=== PATIENT | female | born 1935 | race Caucasian/White ===

== ENCOUNTER → 2017-02-23 | Outpatient (REF) | payer MEDICARE, MEDICAID ==
[~2017-02-23] MED LIST: AMLO10TA OR; ATEN50TA2 OR; CEFT250T OR; COLA100C2 OR; DIOV80TA PO; GLUC1000 OR; KEPPRA PO; NORV5TAB OR; PRIL20CA OR; VITAMIN D50000 UNT PO
[2017-02-23 11:15] LABS: FREE T4 0.98 NG/DL (0.76-1.46)
== END ==
PROVIDERS: ATTEND Internal Medicine
DX: E05.90 Thyrotoxicosis, unspecified without thyrotoxic crisis or storm (principal); G40.909 Epilepsy, unspecified, not intractable, without status epilepticus

== ENCOUNTER → 2017-03-09 | Outpatient (REF) | payer MEDICARE, MEDICAID ==
[2017-03-09 14:21] LABS: FREE T4 0.92 NG/DL (0.76-1.46)
== END ==
PROVIDERS: ATTEND Internal Medicine
DX: E05.90 Thyrotoxicosis, unspecified without thyrotoxic crisis or storm (principal); G40.909 Epilepsy, unspecified, not intractable, without status epilepticus

== ENCOUNTER → 2017-08-03 | Outpatient (CLI) | payer MEDICARE, MEDICAID | LOC: M SMT 11:44 | DX: Z53.9 Procedure and treatment not carried out, unspecified reason (principal) ==

== ENCOUNTER → 2017-08-05 | Outpatient (CLI) | payer MEDICARE, MEDICAID | LOC: M SMT 13:08 | DX: M25.774 Osteophyte, right foot (principal) | CPT/HCPCS: 73630 ==

== ENCOUNTER → 2018-11-29 | Outpatient (REF) | payer MEDICARE, MEDICAID ==
[2018-11-29 09:22] LABS: BASO # 0.1 10^3/uL (0.0-0.2); BASO % 0.9 % (0.0-1.0); EOS # 0.2 10^3/uL (0.0-0.50); EOS % 3.4 % (0.0-3.0); HEMATOCRIT 38.2 % (36.0-47.0); HEMOGLOBIN 12.2 g/dl (12.0-15.5); LYMPH # 1.9 10^3/uL (1.5-4.5); LYMPH % 32.9 % (24.0-44.0); MEAN CORPUSCULAR HEMOGLOBIN 29.5 pg (27.0-33.0); MEAN CORPUSCULAR HGB CONC 31.9 g/dl (32.0-36.5); MEAN CORPUSCULAR VOLUME 92.5 fl (80.0-96.0); MONO # 0.7 10^3/uL (0.0-0.8); MONO % 11.8 % (0.0-5.0); NEUTROPHILS # 2.9 10^3/uL (1.8-7.7); NEUTROPHILS % 50.6 % (36.0-66.0); PLATELET COUNT, AUTOMATED 321 10^3/uL (150-450); RED BLOOD COUNT 4.13 10^6/uL (4.00-5.40); WHITE BLOOD COUNT 5.7 10^3/uL (4.0-10.0)
[2018-11-29 10:49] LABS: ALBUMIN 3.3 GM/DL (3.2-5.2); ALT/SGPT 141 U/L (12-78); BILIRUBIN,TOTAL 0.5 MG/DL (0.2-1.0); BLOOD UREA NITROGEN 15 MG/DL (7-18); CALCIUM LEVEL 8.7 MG/DL (8.8-10.2); CARBON DIOXIDE LEVEL 27 MEQ/L (21-32); CHLORIDE LEVEL 104 MEQ/L (98-107); CHOLESTEROL LEVEL 195 MG/DL (<200); CHOLESTEROL RISK RATIO 3.145 (<5); GLOMERULAR FILTRATION RATE > 60.0 (>32); GLUCOSE, FASTING 124 MG/DL (70-100); HDL CHOLESTEROL 62 MG/DL (>40); LDL CHOLESTEROL 96 MG/DL (<100); NON-HDL-C 133 MG/DL; POTASSIUM SERUM 4.5 MEQ/L (3.5-5.1); SODIUM LEVEL 139 MEQ/L (136-145); TOTAL PROTEIN 7.4 GM/DL (6.4-8.2); TRIGLYCERIDES LEVEL 186 MG/DL (<150)
== END ==
PROVIDERS: ATTEND Internal Medicine
DX: I10 Essential (primary) hypertension (principal); E78.5 Hyperlipidemia, unspecified; G40.909 Epilepsy, unspecified, not intractable, without status epilepticus; R74.0 Nonspecific elevation of levels of transaminase and lactic acid dehydrogenase [LDH]

== ENCOUNTER → 2019-03-15 | Outpatient (REF) | payer MEDICARE, MEDICAID ==
[2019-03-15 10:02] LABS: ALBUMIN 3.5 GM/DL (3.2-5.2); BILIRUBIN,TOTAL 0.4 MG/DL (0.2-1.0); CALCIUM LEVEL 9.3 MG/DL (8.8-10.2); CHOLESTEROL RISK RATIO 2.65 (<5); CREATININE FOR GFR 0.95 MG/DL (0.55-1.30); GLOMERULAR FILTRATION RATE 59.4 (>32); POTASSIUM SERUM 4.6 MEQ/L (3.5-5.1); TOTAL PROTEIN 7.5 GM/DL (6.4-8.2)
[2019-03-15 10:26] LABS: TOTAL 25(OH) VITAMIN D 82.7 NG/ML (30.0-100.0)
== END ==
PROVIDERS: ATTEND Internal Medicine
DX: E55.9 Vitamin D deficiency, unspecified (principal); G40.909 Epilepsy, unspecified, not intractable, without status epilepticus; I10 Essential (primary) hypertension; R73.9 Hyperglycemia, unspecified; Z79.899 Other long term (current) drug therapy

== ENCOUNTER → 2019-03-19 | Outpatient (REF) | payer MEDICARE, MEDICAID ==
[2019-03-19 21:27] LABS: HEMATOCRIT 40.5 % (36.0-47.0); HEMOGLOBIN 12.8 g/dl (12.0-15.5); MEAN CORPUSCULAR HEMOGLOBIN 29.6 pg (27.0-33.0); MEAN CORPUSCULAR HGB CONC 31.6 g/dl (32.0-36.5); MEAN CORPUSCULAR VOLUME 93.8 fl (80.0-96.0); PLATELET COUNT, AUTOMATED 397 10^3/uL (150-450); RED BLOOD COUNT 4.32 10^6/uL (4.00-5.40); WHITE BLOOD COUNT 8.1 10^3/uL (4.0-10.0)
[2019-03-19 21:55] LABS: BILIRUBIN,TOTAL 0.3 MG/DL (0.2-1.0); CALCIUM LEVEL 9.4 MG/DL (8.8-10.2); CREATININE FOR GFR 1.1 MG/DL (0.55-1.30); GLOMERULAR FILTRATION RATE 50.1 (>32); POTASSIUM SERUM 4.7 MEQ/L (3.5-5.1)
[2019-03-19 21:56] LABS: ALBUMIN 3.7 GM/DL (3.2-5.2); TOTAL PROTEIN 8.1 GM/DL (6.4-8.2)
== END ==
LOC: M LAB REF 08:28
PROVIDERS: ATTEND Physician Assistant
DX: R30.0 Dysuria (principal); R42 Dizziness and giddiness; R41.0 Disorientation, unspecified

== ENCOUNTER → 2019-03-22 | Outpatient (CLI) | payer MEDICARE, MEDICAID | LOC: M LAB 10:58 | PROVIDERS: ATTEND Internal Medicine | DX: G40.909 Epilepsy, unspecified, not intractable, without status epilepticus (principal) ==

== ENCOUNTER → 2019-04-17 | Outpatient (REF) | payer MEDICARE, MEDICAID ==
[2019-04-18 15:56] LABS: APPEARANCE, URINE CLEAR (CLEAR); COLOR, URINE YELLOW (YELLOW); GLUCOSE, URINE (UA) AUTO NEGATIVE (NEGATIVE); KETONE, URINE AUTO NEGATIVE (NEGATIVE); PROTEIN, URINE AUTO NEGATIVE (NEGATIVE); SPECIFIC GRAVITY URINE AUTO 1.008 (1.002-1.035)
[2019-04-18 15:58] LABS: BILIRUBIN, URINE AUTO NEGATIVE (NEGATIVE); BLOOD, URINE BLOOD NEGATIVE (NEGATIVE); LEUKOCYTE ESTERASE, URINE AUTO TRACE (NEGATIVE); NITRITE, URINE AUTO NEGATIVE (NEGATIVE); UROBILINOGEN, URINE AUTO 0.2 mg/dL (0.0-2.0); WBC, URINE AUTO 3 /HPF (0-3)
[2019-04-18 15:59] LABS: BACTERIA, URINE AUTO NEGATIVE (NEGATIVE); RBC, URINE AUTO 0 /HPF (0-3); SQUAMOUS EPITHELIAL CELL UR AU 1 /HPF (0-6)
== END ==
LOC: M LAB REF 17:36
PROVIDERS: ATTEND Internal Medicine
DX: R30.0 Dysuria (principal)

== ENCOUNTER → 2019-04-21 | Outpatient (REF) | payer MEDICARE, MEDICAID ==
[2019-04-21 17:38] LABS: APPEARANCE, URINE CLEAR (CLEAR); BACTERIA, URINE AUTO NEGATIVE (NEGATIVE); BILIRUBIN, URINE AUTO NEGATIVE (NEGATIVE); BLOOD, URINE BLOOD NEGATIVE (NEGATIVE); COLOR, URINE YELLOW (YELLOW); GLUCOSE, URINE (UA) AUTO NEGATIVE (NEGATIVE); KETONE, URINE AUTO NEGATIVE (NEGATIVE); LEUKOCYTE ESTERASE, URINE AUTO 2+ (NEGATIVE); NITRITE, URINE AUTO NEGATIVE (NEGATIVE); PROTEIN, URINE AUTO NEGATIVE (NEGATIVE); RBC, URINE AUTO 0 /HPF (0-3); SPECIFIC GRAVITY URINE AUTO 1.014 (1.002-1.035); SQUAMOUS EPITHELIAL CELL UR AU 0 /HPF (0-6); TRANSITIONAL EPITHELIAL AUTO 2 /HPF; UROBILINOGEN, URINE AUTO 0.2 mg/dL (0.0-2.0); WBC, URINE AUTO 19 /HPF (0-3)
== END ==
PROVIDERS: ATTEND Internal Medicine
DX: R30.0 Dysuria (principal)

== ENCOUNTER → 2019-05-05 | Outpatient (REF) | payer MEDICARE, MEDICAID ==
[2019-05-05 14:29] LABS: APPEARANCE, URINE CLEAR (CLEAR); BACTERIA, URINE AUTO NEGATIVE (NEGATIVE); BILIRUBIN, URINE AUTO NEGATIVE (NEGATIVE); BLOOD, URINE BLOOD NEGATIVE (NEGATIVE); COLOR, URINE YELLOW (YELLOW); GLUCOSE, URINE (UA) AUTO NEGATIVE (NEGATIVE); KETONE, URINE AUTO NEGATIVE (NEGATIVE); LEUKOCYTE ESTERASE, URINE AUTO TRACE (NEGATIVE); NITRITE, URINE AUTO NEGATIVE (NEGATIVE); PROTEIN, URINE AUTO NEGATIVE (NEGATIVE); RBC, URINE AUTO 0 /HPF (0-3); SPECIFIC GRAVITY URINE AUTO 1.008 (1.002-1.035); SQUAMOUS EPITHELIAL CELL UR AU 1 /HPF (0-6); UROBILINOGEN, URINE AUTO 0.2 mg/dL (0.0-2.0); WBC, URINE AUTO 2 /HPF (0-3)
== END ==
LOC: M LAB REF 14:13
PROVIDERS: ATTEND Internal Medicine
DX: R30.0 Dysuria (principal)

== ENCOUNTER → 2019-05-10 | Outpatient (CLI) | payer MEDICARE, MEDICAID ==
[2019-05-10 17:58] LABS: BASO # 0.1 10^3/uL (0.0-0.2); BASO % 1.1 % (0.0-1.0); EOS # 0.2 10^3/uL (0.0-0.5); HEMATOCRIT 38.3 % (36.0-47.0); HEMOGLOBIN 12.5 g/dl (12.0-15.5); LYMPH # 2.1 10^3/uL (1.5-5.0); LYMPH % 28.5 % (24.0-44.0); MEAN CORPUSCULAR HGB CONC 32.6 g/dl (32.0-36.5); MEAN CORPUSCULAR VOLUME 91.8 fl (80.0-96.0); MONO % 13.6 % (0.0-5.0); NEUTROPHILS % 53.4 % (36.0-66.0); PLATELET COUNT, AUTOMATED 355 10^3/uL (150-450); RED BLOOD COUNT 4.17 10^6/uL (4.00-5.40); WHITE BLOOD COUNT 7.4 10^3/uL (4.0-10.0)
[2019-05-10 18:29] LABS: ALBUMIN 3.6 GM/DL (3.2-5.2); BILIRUBIN,TOTAL 0.3 MG/DL (0.2-1.0); CALCIUM LEVEL 9.5 MG/DL (8.8-10.2); CREATININE FOR GFR 0.96 MG/DL (0.55-1.30); GLOMERULAR FILTRATION RATE 58.7 (>32); POTASSIUM SERUM 4.6 MEQ/L (3.5-5.1); THYROID STIMULATING HORMONE 1.33 uIU/ML (0.358-3.740); TOTAL PROTEIN 8.1 GM/DL (6.4-8.2)
== END ==
LOC: M LAB 17:08
PROVIDERS: ATTEND Internal Medicine
DX: R53.83 Other fatigue (principal); R26.89 Other abnormalities of gait and mobility

== ENCOUNTER → 2019-07-26 | Outpatient (REF) | payer MEDICARE, MEDICAID ==
[2019-07-26 13:12] LABS: BASO # 0.1 10^3/uL (0.0-0.2); BASO % 0.8 % (0.0-1.0); EOS # 0.1 10^3/uL (0.0-0.5); EOS % 1.7 % (0.0-3.0); HEMATOCRIT 38.8 % (36.0-47.0); HEMOGLOBIN 12.4 g/dl (12.0-15.5); LYMPH # 1.9 10^3/uL (1.5-5.0); LYMPH % 26.5 % (24.0-44.0); MEAN CORPUSCULAR HEMOGLOBIN 29.6 pg (27.0-33.0); MEAN CORPUSCULAR VOLUME 92.6 fl (80.0-96.0); MONO # 0.7 10^3/uL (0.0-0.8); MONO % 9.8 % (0.0-5.0); NEUTROPHILS # 4.3 10^3/uL (1.5-8.5); NEUTROPHILS % 60.9 % (36.0-66.0); PLATELET COUNT, AUTOMATED 373 10^3/uL (150-450); RED BLOOD COUNT 4.19 10^6/uL (4.00-5.40); WHITE BLOOD COUNT 7.1 10^3/uL (4.0-10.0)
[2019-07-26 13:40] LABS: ALBUMIN 3.6 GM/DL (3.2-5.2); ALT/SGPT 99 U/L (12-78); BILIRUBIN,TOTAL 0.5 MG/DL (0.2-1.0); BLOOD UREA NITROGEN 11 MG/DL (7-18); CALCIUM LEVEL 9.6 MG/DL (8.8-10.2); CARBON DIOXIDE LEVEL 32 MEQ/L (21-32); CHLORIDE LEVEL 99 MEQ/L (98-107); CREATININE FOR GFR 0.84 MG/DL (0.55-1.30); GLOMERULAR FILTRATION RATE > 60.0 (>32); GLUCOSE, FASTING 122 MG/DL (70-100); SODIUM LEVEL 136 MEQ/L (136-145); TOTAL PROTEIN 7.8 GM/DL (6.4-8.2)
[2019-07-26 13:48] LABS: TOTAL 25(OH) VITAMIN D 91.8 NG/ML (30.0-100.0)
== END ==
PROVIDERS: ATTEND Internal Medicine
DX: R61 Generalized hyperhidrosis (principal); E55.9 Vitamin D deficiency, unspecified; I10 Essential (primary) hypertension; R74.0 Nonspecific elevation of levels of transaminase and lactic acid dehydrogenase [LDH]; Z79.899 Other long term (current) drug therapy

== ENCOUNTER → 2019-09-04 | Outpatient (REF) | payer MEDICARE, MEDICAID | PROVIDERS: ATTEND Internal Medicine | DX: G40.909 Epilepsy, unspecified, not intractable, without status epilepticus (principal); R61 Generalized hyperhidrosis; E55.9 Vitamin D deficiency, unspecified; I10 Essential (primary) hypertension ==

== ENCOUNTER → 2019-10-04 | Outpatient (REF) | payer MEDICARE, MEDICAID ==
[2019-10-04 10:11] LABS: BASO # 0.1 10^3/uL (0.0-0.2); BASO % 0.9 % (0.0-1.0); EOS # 0.3 10^3/uL (0.0-0.5); EOS % 3.4 % (0.0-3.0); HEMATOCRIT 37.6 % (36.0-47.0); HEMOGLOBIN 12.1 g/dl (12.0-15.5); LYMPH # 2.1 10^3/uL (1.5-5.0); LYMPH % 28.2 % (24.0-44.0); MEAN CORPUSCULAR HEMOGLOBIN 28.9 pg (27.0-33.0); MEAN CORPUSCULAR HGB CONC 32.2 g/dl (32.0-36.5); MONO # 0.6 10^3/uL (0.0-0.8); MONO % 8.6 % (0.0-5.0); NEUTROPHILS # 4.3 10^3/uL (1.5-8.5); NEUTROPHILS % 58.6 % (36.0-66.0); PLATELET COUNT, AUTOMATED 348 10^3/uL (150-450); RED BLOOD COUNT 4.18 10^6/uL (4.00-5.40); WHITE BLOOD COUNT 7.4 10^3/uL (4.0-10.0)
[2019-10-04 10:35] LABS: ALBUMIN 3.3 GM/DL (3.2-5.2); ALT/SGPT 85 U/L (12-78); BILIRUBIN,TOTAL 0.4 MG/DL (0.2-1.0); BLOOD UREA NITROGEN 16 MG/DL (7-18); CALCIUM LEVEL 9.3 MG/DL (8.8-10.2); CARBON DIOXIDE LEVEL 27 MEQ/L (21-32); CHLORIDE LEVEL 103 MEQ/L (98-107); CREATININE FOR GFR 0.89 MG/DL (0.55-1.30); GLOMERULAR FILTRATION RATE > 60.0 (>32); GLUCOSE, FASTING 207 MG/DL (70-100); POTASSIUM SERUM 4.5 MEQ/L (3.5-5.1); SODIUM LEVEL 136 MEQ/L (136-145); TOTAL PROTEIN 7.7 GM/DL (6.4-8.2)
[2019-10-06 14:12] LABS: LEVETIRACETAM (KEPPRA) 37.5 ug/mL (10.0-40.0); VITAMIN D 1,25 DIHYDROXY 41.2 pg/mL (19.9-79.3)
== END ==
PROVIDERS: ATTEND Internal Medicine
DX: R61 Generalized hyperhidrosis (principal); E55.9 Vitamin D deficiency, unspecified; I10 Essential (primary) hypertension; R74.0 Nonspecific elevation of levels of transaminase and lactic acid dehydrogenase [LDH]

== ENCOUNTER → 2019-11-01 | Outpatient (REF) | payer MEDICARE, MEDICAID ==
[2019-11-01 11:37] LABS: BASO # 0.1 10^3/uL (0.0-0.2); BASO % 1.2 % (0.0-1.0); EOS # 0.5 10^3/uL (0.0-0.5); EOS % 6.1 % (0.0-3.0); HEMATOCRIT 37.5 % (36.0-47.0); HEMOGLOBIN 11.6 g/dl (12.0-15.5); LYMPH # 2.5 10^3/uL (1.5-5.0); LYMPH % 31.1 % (24.0-44.0); MEAN CORPUSCULAR HEMOGLOBIN 27.7 pg (27.0-33.0); MEAN CORPUSCULAR HGB CONC 30.9 g/dl (32.0-36.5); MEAN CORPUSCULAR VOLUME 89.5 fl (80.0-96.0); MONO # 0.8 10^3/uL (0.0-0.8); MONO % 10.1 % (0.0-5.0); NEUTROPHILS # 4.1 10^3/uL (1.5-8.5); NEUTROPHILS % 51.1 % (36.0-66.0); PLATELET COUNT, AUTOMATED 362 10^3/uL (150-450); RED BLOOD COUNT 4.19 10^6/uL (4.00-5.40); WHITE BLOOD COUNT 8.1 10^3/uL (4.0-10.0)
[2019-11-01 12:08] LABS: TOTAL 25(OH) VITAMIN D 90.6 NG/ML (30.0-100.0)
[2019-11-01 12:12] LABS: ALBUMIN 3.3 GM/DL (3.2-5.2); ALT/SGPT 75 U/L (12-78); BILIRUBIN,TOTAL 0.5 MG/DL (0.2-1.0); BLOOD UREA NITROGEN 18 MG/DL (7-18); CALCIUM LEVEL 9.6 MG/DL (8.8-10.2); CARBON DIOXIDE LEVEL 30 MEQ/L (21-32); CHLORIDE LEVEL 101 MEQ/L (98-107); CREATININE FOR GFR 0.86 MG/DL (0.55-1.30); GLOMERULAR FILTRATION RATE > 60.0 (>32); GLUCOSE, FASTING 183 MG/DL (70-100); POTASSIUM SERUM 4.3 MEQ/L (3.5-5.1); SODIUM LEVEL 138 MEQ/L (136-145); TOTAL PROTEIN 7.8 GM/DL (6.4-8.2)
== END ==
PROVIDERS: ATTEND Internal Medicine
DX: R61 Generalized hyperhidrosis (principal); E55.9 Vitamin D deficiency, unspecified; I10 Essential (primary) hypertension; R74.0 Nonspecific elevation of levels of transaminase and lactic acid dehydrogenase [LDH]

== ENCOUNTER → 2020-06-12 | Outpatient (REF) | payer MEDICARE, MEDICAID ==
[2020-06-13 09:25] LABS: INFLUENZA A AMPLIFICATION NEGATIVE (NEGATIVE); INFLUENZA B AMPLIFICATION NEGATIVE (NEGATIVE)
== END ==
PROVIDERS: ATTEND Internal Medicine
DX: Z20.828 Contact with and (suspected) exposure to other viral communicable diseases (principal)
CPT/HCPCS: 87502; U0003

== ENCOUNTER → 2020-06-17 | Outpatient (REF) | payer MEDICARE, MEDICAID | PROVIDERS: ATTEND Internal Medicine | DX: Z20.828 Contact with and (suspected) exposure to other viral communicable diseases (principal) ==

== ENCOUNTER → 2020-06-24 | Outpatient (REF) | payer MEDICARE, MEDICAID | PROVIDERS: ATTEND Internal Medicine | DX: Z20.828 Contact with and (suspected) exposure to other viral communicable diseases (principal) ==

== ENCOUNTER → 2020-07-01 | Outpatient (REF) | payer MEDICARE, MEDICAID | PROVIDERS: ATTEND Internal Medicine | DX: Z11.52 Encounter for screening for COVID-19 (principal) ==

== ENCOUNTER → 2020-07-08 | Outpatient (REF) | payer MEDICARE, MEDICAID | PROVIDERS: ATTEND Internal Medicine | DX: Z20.822 Contact with and (suspected) exposure to COVID-19 (principal) ==

== ENCOUNTER → 2020-07-15 | Outpatient (REF) | payer MEDICARE, MEDICAID | PROVIDERS: ATTEND Internal Medicine | DX: Z20.822 Contact with and (suspected) exposure to COVID-19 (principal) ==

== ENCOUNTER → 2020-07-22 | Outpatient (REF) | payer MEDICARE, MEDICAID | PROVIDERS: ATTEND Internal Medicine | DX: Z20.822 Contact with and (suspected) exposure to COVID-19 (principal) ==

== ENCOUNTER → 2020-07-29 | Outpatient (REF) | payer MEDICARE, MEDICAID | PROVIDERS: ATTEND Internal Medicine | DX: Z20.822 Contact with and (suspected) exposure to COVID-19 (principal) ==

== ENCOUNTER → 2020-08-05 | Outpatient (REF) | payer MEDICARE, MEDICAID | PROVIDERS: ATTEND Internal Medicine | DX: Z20.822 Contact with and (suspected) exposure to COVID-19 (principal) ==

== ENCOUNTER → 2020-08-12 | Outpatient (REF) | payer MEDICARE, MEDICAID | PROVIDERS: ATTEND Internal Medicine | DX: Z20.822 Contact with and (suspected) exposure to COVID-19 (principal) ==

== ENCOUNTER → 2020-08-19 | Outpatient (REF) | payer MEDICARE, MEDICAID | PROVIDERS: ATTEND Internal Medicine | DX: Z20.822 Contact with and (suspected) exposure to COVID-19 (principal) ==

== ENCOUNTER 2020-10-23 17:27 | Emergency (ER) | payer MEDICARE, MEDICAID ==
[2020-10-23] MEDS ORDERED: ASPI81CH33 PO (19:21)
[2020-10-23] MEDS ORDERED: CALC1TAB42 PO (19:29)
[2020-10-23] MEDS ORDERED: HYDR12.55 PO (19:29)
[2020-10-23] MEDS ORDERED: COLA100C5 PO (19:29)
[2020-10-23] MEDS ORDERED: CHIL5SYP2 PO (19:29)
[2020-10-23] MEDS ORDERED: OCUVCAP2 PO (19:29)
[2020-10-23] MEDS ORDERED: FISH1000 PO (19:29)
[2020-10-23] MEDS ORDERED: LOSA100T8 PO (19:29)
[2020-10-23 20:03] VITALS: BP 131/60
--- NOTE | 2020-10-23 20:45 | REPVR ---
PROCEDURE INFORMATION: Exam: XR Chest Exam date and time: 10/23/2020 8:19 PM Age: 85 years old Clinical indication: Other: Fever TECHNIQUE: Imaging protocol: XR of the chest. Views: 1 view. COMPARISON: CR Chest, 2 view PA, Lat 05/30/2015 7:15 AM FINDINGS: Lungs: Unremarkable. No consolidation. Pleural spaces: Unremarkable. No pleural effusion. No pneumothorax. Heart/Mediastinum: Large hiatal hernia. Bones/joints: Unremarkable. IMPRESSION: No acute findings. Electronically signed by: Gaston Patel On 10/23/2020 20:44:55 PM
[2020-10-23 21:36] LABS: HEMATOCRIT 32.8 % (36.0-47.0); HEMOGLOBIN 10.1 g/dl (12.0-15.5); MEAN CORPUSCULAR HEMOGLOBIN 25.4 pg (27.0-33.0); MEAN CORPUSCULAR HGB CONC 30.8 g/dl (32.0-36.5); MEAN CORPUSCULAR VOLUME 82.6 fl (80.0-96.0); PLATELET COUNT, AUTOMATED 277 10^3/uL (150-450); RED BLOOD COUNT 3.97 10^6/uL (4.00-5.40)
[2020-10-23 21:38] LABS: WHITE BLOOD COUNT 18.8 10^3/uL (4.0-10.0)
[2020-10-23 21:55] LABS: ANISOCYTOSIS 1+; ATYPICAL LYMPH 3 % (0-5); HYPOCHROMASIA 1+; LYMPHOCYTES 10 % (16-44); MONOCYTES 13 % (0-5); MYELOCYTES 1 % (0-0); NEUTROPHILS 71 % (28-66); PLATELET ESTIMATE NORMAL (NORMAL)
[2020-10-23 21:57] LABS: ALBUMIN 3.3 GM/DL (3.2-5.2); ALT/SGPT 45 U/L (12-78); BILIRUBIN,DIRECT 0.2 MG/DL (0.0-0.2); BILIRUBIN,TOTAL 0.7 MG/DL (0.2-1.0); BLOOD UREA NITROGEN 28 MG/DL (7-18); CALCIUM LEVEL 9.9 MG/DL (8.8-10.2); CARBON DIOXIDE LEVEL 26 MEQ/L (21-32); CHLORIDE LEVEL 98 MEQ/L (98-107); CK-MB VALUE MASS < 1.0 NG/ML (<3.6); CPK CREATINE PHOSPHOKINASE 94 U/L (26-192); CREATININE FOR GFR 1.39 MG/DL (0.55-1.30); GLOMERULAR FILTRATION RATE 38.2 (>32); GLUCOSE, FASTING 198 MG/DL (70-100); MB/CK RELATIVE INDEX 1.06 (< OR =4); POTASSIUM SERUM 3.5 MEQ/L (3.5-5.1); SODIUM LEVEL 134 MEQ/L (136-145); TOTAL PROTEIN 7.7 GM/DL (6.4-8.2); TROPONIN I < 0.02 NG/ML (< 0.10)
[2020-10-23] MEDS ORDERED: cefTRIAXone SOD 1 GM in D5W MINI-BAG PLUS 50 ML IV ONE (22:25)
[2020-10-23] MEDS ORDERED: CEFD300C PO (23:19)
--- NOTE | 2020-10-23 23:23 | ECGEPIP ---
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
== END 2020-10-24 00:19 | disposition home or self-care (01) ==
LOC: EEVIPCON 17:27 → M ED 17:27
DX: N39.0 Urinary tract infection, site not specified (principal); I10 Essential (primary) hypertension; K21.9 Gastro-esophageal reflux disease without esophagitis; E11.9 Type 2 diabetes mellitus without complications; D64.9 Anemia, unspecified; E04.1 Nontoxic single thyroid nodule; R56.9 Unspecified convulsions; R94.5 Abnormal results of liver function studies; Z88.1 Allergy status to other antibiotic agents; Z88.0 Allergy status to penicillin; Z88.8 Allergy status to other drugs, medicaments and biological substances; Z91.018 Allergy to other foods; Z79.899 Other long term (current) drug therapy; Z79.84 Long term (current) use of oral hypoglycemic drugs; Z79.82 Long term (current) use of aspirin
CPT/HCPCS: 71045; 80048; 80076; 81001; 82550; 82553; 84484; 85025; 87088; 87186; 87798; 93005; 96365; 96366; 99284; J0696

== ENCOUNTER 2020-10-28 07:31 | Inpatient (IN) | payer MEDICARE, MEDICAID ==
[~2020-10-28] VITALS: Ht 152.4 cm; Wt 76.1 kg
[~2020-10-28 07:31] MED LIST changes: +ASPI81CH33 PO; +CALC1TAB42 PO; +CEFD300C PO; +CHIL5SYP2 PO; +COLA100C5 PO; +FISH1000 PO; +HYDR12.55 PO; +LOSA100T8 PO; +OCUVCAP2 PO
[2020-10-28] MEDS ORDERED: ALBUTEROL SULFATE 2.5 MG/0.5 ML INH NEB SOLN INH ONE (07:50)
[2020-10-28] MEDS ORDERED: methylPREDNISolone 125MG 2ML VIAL IV ONE (07:50)
[2020-10-28] MEDS ORDERED: IPRATROPIUM 0.5MG/ALBUTEROL 2.5MG INH SOL UD 3ML (DUONEB) NEB ONE (07:50)
[2020-10-28] MEDS ORDERED: ASPI81CH48 PO (08:14)
[2020-10-28] MEDS ORDERED: LOSA100T50 PO (08:14)
[2020-10-28] MEDS ORDERED: DIFL150T PO (08:14)
[2020-10-28] MEDS ORDERED: COLA100C5 PO (08:14)
[2020-10-28] MEDS ORDERED: OCUVCAP2 PO (08:14)
[2020-10-28] MEDS ORDERED: LORA-622 PO (08:14)
[2020-10-28] MEDS ORDERED: TOPR50TA PO (08:14)
[2020-10-28] MEDS ORDERED: MILKSUS3 PO (08:14)
[2020-10-28] MEDS ORDERED: QC A650T3 PO (08:14)
[2020-10-28] MEDS ORDERED: MACR100C43 PO (08:14)
[2020-10-28] MEDS ORDERED: KETO2CR TOP (08:14)
[2020-10-28] MEDS ORDERED: TAB-TAB3 PO (08:14)
[2020-10-28] MEDS ORDERED: FISH306C PO (08:14)
[2020-10-28] MEDS ORDERED: AMLO1TAB24 PO (08:14)
[2020-10-28] MEDS ORDERED: AMIT10TA7 PO (08:14)
[2020-10-28] MEDS ORDERED: OMEP1CAP73 PO (08:14)
[2020-10-28] MEDS ORDERED: KEPP1TAB PO (08:14)
[2020-10-28] MEDS ORDERED: VITA50005 PO (08:14)
[2020-10-28] MEDS ORDERED: CALC1TAB74 PO (08:14)
[2020-10-28] MEDS ORDERED: HYDR12CA PO (08:14)
[2020-10-28] MEDS ORDERED: MEROPENEM INJ 1 GM in IV 1 EA IV ONE (08:20)
--- NOTE | 2020-10-28 08:31 | REP ---
INDICATION: DYSPNEA/COUGH. COMPARISON: Comparison chest x-ray October 23, 2020. TECHNIQUE: Portable upright AP chest radiograph. FINDINGS: The lungs are symmetrically aerated and clear. The pleural angles are sharp. Heart is mildly prominent in size unchanged. There is a large hiatal hernia behind the heart. Monitoring electrodes are present.. No infiltrate is seen. No acute bony abnormality. IMPRESSION: Large hiatal hernia. Mildly enlarged heart. Otherwise no acute disease.. <Electronically signed by Rolando De Los Santos > 10/28/20 [id number]
[2020-10-28] MEDS ORDERED: NS 1,000 ML IV ONE (08:35)
[2020-10-28] MEDS ORDERED: LIDOCAINE 2% 5ML JELLY UROJET TOP ONE ×2 (08:40)
[2020-10-28 08:58] LABS: BASO # 0.1 10^3/uL (0.0-0.2); BASO % 0.4 % (0.0-1.0); EOS # 0.2 10^3/uL (0.0-0.5); EOS % 0.9 % (0.0-3.0); HEMOGLOBIN 10.2 g/dl (12.0-15.5); LYMPH # 2.2 10^3/uL (1.5-5.0); LYMPH % 11.4 % (24.0-44.0); MEAN CORPUSCULAR HEMOGLOBIN 24.9 pg (27.0-33.0); MEAN CORPUSCULAR HGB CONC 30.9 g/dl (32.0-36.5); MEAN CORPUSCULAR VOLUME 80.5 fl (80.0-96.0); MONO # 3.3 10^3/uL (0.0-0.8); MONO % 17.2 % (2.0-8.0); NEUTROPHILS # 13.1 10^3/uL (1.5-8.5); NEUTROPHILS % 69.3 % (36.0-66.0); PLATELET COUNT, AUTOMATED 390 10^3/uL (150-450)
[2020-10-28] MEDS: KETOCONAZOLE 2% CREAM TOP SCH ×2 (09:00→20:51)
[2020-10-28] MEDS: levETIRAcetam 250MG TABLET (KEPPRA) PO SCH ×3 (09:00→21:00)
[2020-10-28] MEDS ORDERED: ISOVUE-370 76% 100ML VIAL As Ordered ONE (09:00)
[2020-10-28 09:19] LABS: INR 1.2; PROTHROMBIN TIME 15.5 SECONDS (12.5-14.3)
[2020-10-28 09:20] LABS: PARTIAL THROMBOPLASTIN TIME 37.1 SECONDS (24.2-38.5)
[2020-10-28 09:24] LABS: C REACTIVE PROTEIN QUANTITATIV 11.1 MG/DL (0.00-0.30); CALCIUM LEVEL 9.6 MG/DL (8.8-10.2); CREATININE FOR GFR 1.32 MG/DL (0.55-1.30); GLOMERULAR FILTRATION RATE 40.5 (>32); POTASSIUM SERUM 3.6 MEQ/L (3.5-5.1)
[2020-10-28 09:36] LABS: ALBUMIN 3.2 GM/DL (3.2-5.2); ALT/SGPT 28 U/L (12-78); BILIRUBIN,DIRECT 0.2 MG/DL (0.0-0.2); BILIRUBIN,TOTAL 0.6 MG/DL (0.2-1.0); CPK CREATINE PHOSPHOKINASE 33 U/L (26-192); LIPASE 114 U/L (73-393); MB/CK RELATIVE INDEX 3.03 (< OR =4); NT-PRO BNP 42 PG/ML (<450); THYROID STIMULATING HORMONE 0.117 uIU/ML (0.358-3.740); THYROXINE (T4) 10.9 UG/DL (4.5-12.0); TROPONIN I < 0.02 NG/ML (< 0.10)
--- NOTE | 2020-10-28 11:07 | REP ---
INDICATION: sob, ro pneum, pe; abdom distension COMPARISON: 01/09/2010 TECHNIQUE: Axial contrast enhanced images from the thoracic inlet to the upper abdomen using pulmonary embolus technique with multiplanar re-formations. 100 ml Isovue 370 intravenous contrast material administered without complication followed by CT of the abdomen and pelvis. This CT examination was performed using the following dose reduction techniques: Automated exposure control, adjustment of mA and/or kv according to the patient's size, and use of iterative reconstruction technique. FINDINGS: Satisfactory enhancement of the pulmonary vasculature is achieved and no filling defects are identified to suggest pulmonary embolus. Further evaluation of the mediastinum demonstrates normal thoracic aorta, heart and pericardium. There is a large sliding gastric hiatal hernia with apparent presumed chronic adjacent passive changes at the bilateral lung bases. No mediastinal or hilar adenopathy. No consolidation, pleural effusion, or pneumothorax. No obvious suspicious nodule or mass lesion. Bilateral axillary adenopathy is appreciated which warrants further investigation. Right axillary lymph node measures up to 3 cm and left axillary lymph node measures up to approximately 2.8 cm. Musculoskeletal structures are intact and without acute osseous abnormality. IMPRESSION: No evidence for pulmonary embolus. No acute mediastinal or pleural parenchymal process. Large sliding hiatal hernia. Bilateral axillary adenopathy warrants further investigation. <Electronically signed by Tyree Colvin > 10/28/20 [id number]
--- NOTE | 2020-10-28 11:14 | REP ---
INDICATION: sob, ro pneum, pe; abdom distension. COMPARISON: None TECHNIQUE: Axial contrast-enhanced images from the lung bases to the pubic symphysis using 100 cc Isovue 370 intravenous contrast material. Coronal and sagittal reformations obtained. This CT examination was performed using the following dose reduction techniques: Automated exposure control, adjustment of mA and/or kv according to the patient's size, and the use of iterative reconstruction technique. FINDINGS: Examination is limited by image degradation due to the patient's hands at their side rather than above their head as well as respiratory motion artifact. Gallbladder is distended with small layering gallstones, but no wall thickening or pericholecystic fluid noted. Liver includes 3.2 cm hypodense lesion in the right lobe suggesting cyst. Spleen, bilateral adrenal glands and atrophic kidneys are relatively normal. Incidental renal hypodensities are incompletely evaluated, but likely represent cysts. A small nodular density at the tail of the pancreas in the region of the splenic hilum measuring 15 mm may warrant further investigation as the remainder of the pancreas is completely atrophic. There is no evidence for bowel obstruction or acute inflammatory process. Large sliding hiatal hernia at the gastroesophageal junction is again noted. Pelvis demonstrates normal bladder and age-appropriate uterus/adnexa. No ascites. No free air. No intraperitoneal or retroperitoneal adenopathy. Abdominal aorta and vasculature appear relatively normal. Musculoskeletal structures demonstrate age-related degenerative changes. There is a compression deformity involving L3 which is of indeterminate age and should be correlated clinically. IMPRESSION: 1. 15 mm possible nodule at the tail of the pancreas may warrant further investigation and follow-up. 2. Hypodense lesions in the liver and kidneys likely represent benign cysts although ultrasound follow-up may be warranted for confirmation. 3. Distended gallbladder with small gallstones but no further evidence to suggest acute cholecystitis. Correlation is recommended. 4. Compression deformity at L3 of indeterminate age. 5. Large sliding hiatal hernia. <Electronically signed by Tyree Colvin > 10/28/20 [id number]
--- NOTE | 2020-10-28 12:00 | HPEPDOC ---
[facility] Medical History & Physical Date of Admission October 28, 2020 Date of Service: October 28, 2020 History and Physical CHIEF COMPLAINT: shortness of breath HISTORY OF PRESENT ILLNESS: 85 year old female from assisted living ([facility]), recently seen in ED for uti, discharged with cefdinir that was subsequently transitioned to macrobid, sent to ED for hypoxia and lethargy. She was found to be 88 % on room air at her facility. She notes a cough, non-productive. She also noted an unwitnessed mechanical fall on Wednesday10/25/20. On exam she denied chest pain, headaches, changes in vision, N/V/D. PAST MEDICAL HISTORY: #HTN #seizure disorder ALLERGIES: Please see below. REVIEW OF SYSTEMS: Negative except as per HPI. HOME MEDICATIONS: Please see below. PHYSICAL EXAMINATION: VITAL SIGNS: See below General; NAD, elderly, frail, lying comfortably in bed HEENT: NC/AT, EOMI, edentulous Lungs: CTA B/L Heart: +S1S2, irregular Abd: soft, NT, +BS Ext: no edema LABORATORY DATA: See below. MICROBIOLOGY: Please see below. A/P: 85 yo female from assisted living ([place]) presents for shortness of breath, hypoxic at AL (88% RA). Recently diagnosed two days ago for UTI, cultures returning positive for ESBL E.Coli. Also recent unwitnessed fall, described as mechanical by patient. #UTI - previous UCx - ESBL E.Coli - multiple drug allergies - meropenem 1 g IV q8h #falls - telemetry - fall precautions - PT/OT - echocardiogram #new afib - echocardiogram - telemetry monitoring - [id number] = 3 for age and gender - recommend anticoagulation #seizure disorder - keppra levels pending #DVT prophylaxis - mechanical for now - transition to a/c as further workup progresses Vital Signs Vital Signs Date Time Temp Pulse Resp B/P (MAP) Pulse Ox O2 Delivery O2 Flow Rate FiO2 10/28/20 08:31 90 24 121/63 (82) 98 Nasal Cannula 2.0 10/28/20 07:49 98.9 Laboratory Data Labs 24H Laboratory Tests 2 10/28/20 07:48: Total Bilirubin 0.6, Direct Bilirubin 0.2, Aspartate Amino Transf (AST/SGOT) 20, Alanine Aminotransferase (ALT/SGPT) 28, Alkaline Phosphatase 66, Total Creatine Kinase 33, Creatine Kinase MB 1.0, Creatine Kinase MB Relative Index 3.03, Troponin I < 0.02, DA-Mxi-J-Type Natriuretic Peptide 42, Total Protein 8.0, Albumin 3.2, Albumin/Globulin Ratio 0.7L, Lipase 114, Thyroid Stimulating Hormone (TSH) 0.117L, Thyroxine (T4) 10.9 10/28/20 07:53: Prothrombin Time 15.5H, Prothromb Time International Ratio 1.20, Activated Partial Thromboplast Time 37.1, Anion Gap 10, Glomerular Filtration Rate 40.5, Calcium Level 9.6, C-Reactive Protein, Quantitative 11.10H, Amylase Level 48 10/28/20 08:07: POC pH (Misc Panel) 7.381, POC Base Excess (Misc Panel) -2.0, POC Saturated Percent O2 (Misc) 98, POC pO2 (Misc Panel) 107.0H, POC pCO2 (Misc Panel) 38.6, POC HCO3 (Misc Panel) 22.9, POC Total CO2 (Misc Panel) 24.0 10/28/20 08:29: Immature Granulocyte % (Auto) 0.8, Neutrophils (%) (Auto) 69.3H, Lymphocytes (%) (Auto) 11.4L, Monocytes (%) (Auto) 17.2H, Eosinophils (%) (Auto) 0.9, Basophils (%) (Auto) 0.4, Neutrophils # (Auto) 13.1H, Lymphocytes # (Auto) 2.2, Monocytes # (Auto) 3.3H, Eosinophils # (Auto) 0.2, Basophils # (Auto) 0.1, Nucleated Red Blood Cells % (auto) 0.0, Lactic Acid Level 1.8 10/28/20 08:34: POC Glucose (Misc Panel) 188H, POC Sodium (Misc Panel) 131L, POC Potassium (Misc Panel) 3.8, POC Chloride (Misc Panel) 95L, POC Total CO2 (Misc Panel) 26.0, POC Blood Urea Nitrogen (Misc Panel 38H, POC Ionized Calcium (Misc Panel) 5.0, POC Creatinine (Misc Panel) 1.3, POC Hematocrit (Misc Panel) 35.0L 10/28/20 08:50: Urine Color YELLOW, Urine Appearance HAZY, Urine pH 5.0, Urine Specific [place] 1.014, Urine Protein NEGATIVE, Urine Glucose (UA) NEGATIVE, Urine Ketones NEGATIVE, Urine Blood NEGATIVE, Urine Nitrite NEGATIVE, Urine Bilirubin NEGATIVE, Urine Urobilinogen 0.2, Urine Leukocyte Esterase TRACEH, Urine WBC (Auto) 5H, Urine RBC (Auto) 1, Urine Hyaline Casts (Auto) 0, Urine Bacteria (Auto) NEGATIVE, Urine Squamous Epithelial Cells 0, Urine Amorphous Sediment SMALLH, Urine Sperm (Auto) 10/28/20 09:25: CBC/BMP Laboratory Tests 10/28/20 07:53 10/28/20 08:29 Microbiology Microbiology 10/28/20 Urine Culture, Received Pending 10/28/20 Blood Culture, Received Pending 10/28/20 Respiratory Virus Panel (PCR) (SIRIA) - Final, Complete 10/28/20 Blood Culture, Received Pending Home Medications Scheduled Amitriptyline HCl (Amitriptyline HCl) 10 Mg Tablet, 10 MG PO QHS Amlodipine Besylate (Amlodipine Besylate) 5 Mg Tablet, 5 MG PO DAILY TAKES AT 1200 Aspirin (Aspirin) 81 Mg Tab.chew, 81 MG PO DAILY C,E,Zinc,Copper 24/Om3/Lut/Abram (Ocuvite Adult 50 Plus Softgel) 1 Each Capsule, 1 CAP PO DAILY Calcium Carbonate/Vitamin D3 (Calcium 600-Vit D3 400 Tablet) 1 Each Tablet, 1 TAB PO BID Docusate Sodium (Colace) 100 Mg Capsule, 100 MG PO BID Ergocalciferol (Vitamin D2) (Vitamin D2) 50,000 Units Cap, 50,000 UNITS PO QWEEK FRIDAYS Fluconazole (Diflucan) 150 Mg Tablet, 150 MG PO ONCE TO RECEIVE ON 10/28/20 Hydrochlorothiazide (Hydrochlorothiazide) 12.5 Mg Capsule, 12.5 MG PO DAILY Ketoconazole (Ketoconazole) 15 Gm Cream..g., 1 DOSE TOP BID APPLY TO ABDOMINAL FOLDS FOR 14 DAYS STARTED 10/27/20 Levetiracetam (Keppra) 500 Mg Tablet, 500 MG PO BID Loratadine (Loratadine) 10 Mg Tablet, 10 MG PO DAILY Losartan Potassium (Losartan Potassium) 100 Mg Tablet, 100 MG PO DAILY Metoprolol Succinate (Toprol Xl) 50 Mg Tab.er.24h, 50 MG PO QHS Multivitamin with Folic Acid (Tab-A-Dmear Tablet) 400 Mcg Tablet, 1 TAB PO DAILY Nitrofurantoin Monohyd/M-Cryst (Macrobid 100 mg Capsule) 100 Mg Capsule, 100 MG PO BID TO START 10/28/20 FOR 10 DAYS [place]-3/Dha/Epa/Fish Oil (Fish Oil 500 mg Softgel) 1 Each Capsule, 500 MG PO DAILY Omeprazole (Omeprazole) 20 Mg Capsule.dr, 20 MG PO DAILY Scheduled PRN Acetaminophen (Acetaminophen 8 Hour) 650 Mg Tablet.er, 650 MG PO Q8H PRN for PAIN Magnesium Hydroxide (Milk of Magnesia) 400 Mg/5 Ml Oral.susp, 30 ML PO BID PRN for CONSTIPATION Allergies Coded Allergies: chocolate flavor (Unverified Allergy, Unknown, 10/23/20) Macrolide Antibiotics (Verified Adverse Reaction, Mild, NAUSEA, 10/23/20) Penicillins (Verified Adverse Reaction, Mild, PARATHESIA of FEET, 10/23/20) Quinolones (Verified Adverse Reaction, Mild, NAUSEA, 10/23/20) pseudoephedrine (Verified Adverse Reaction, Mild, NEVAREZ/PALPATATIONS, 10/23/20) A-FIB/CHADSVASC A-FIB History Current/History of A-Fib/PAF?: No EUGENE HANSON MD October 28, 2020 12:00
--- NOTE | 2020-10-28 12:23 | REP ---
INDICATION: abnormal ct. COMPARISON: None. TECHNIQUE: Real-time sonographic evaluation of right upper quadrant performed. FINDINGS: There is a 1.4 cm gallstone in the gallbladder. There is no gallbladder wall thickening or pericholecystic fluid.. There is no intrahepatic or extrahepatic biliary dilatation, common bile duct measures 4 mm in maximum diameter. Liver is enlarged with a length of 20.3 cm. There is a cyst with thin septation in the right lobe, measuring 2.9 x 2.8 x 3.0 cm. Visualized pancreas is grossly unremarkable, not well seen due to overlying bowel gas. The right kidney demonstrates no hydronephrosis, with a normal size of 9.4 cm in length. No free fluid is seen. IMPRESSION: Gallstone in the gallbladder, no evidence of gallbladder wall thickening, pericholecystic fluid or biliary dilatation. <Electronically signed by Justice Guan > 10/28/20 [id number]
[2020-10-28] MEDS ORDERED: ACETAMINOPHEN 650MG ER TAB (TYLENOL ARTHRITIS) PO PRN (12:35)
[2020-10-28] MEDS ORDERED: MEROPENEM INJ 1 GM in IV 1 EA IV SCH (12:35)
[2020-10-28] MEDS ORDERED: MOM 30ML SUSPENSION UDC PO PRN (12:35)
[2020-10-28 14:00] VITALS: BP 137/67
[2020-10-28] MEDS: DOCUSATE SODIUM 100MG CAPSULE PO SCH (15:53)
--- NOTE | 2020-10-28 16:22 | REP ---
INDICATION: FALL, B/L RIB PAIN. COMPARISON: Comparison chest x-ray October 28, 2020 8:18 a.m... TECHNIQUE: Four views, bilateral ribs. FINDINGS: There is diffuse osteopenia. There is no evidence of pneumothorax or hydrothorax. Mediastinum does not appear widened. A hiatal hernia is again noted. No rib fracture or bony destructive lesion is seen. IMPRESSION: No rib fracture noted. Hiatal hernia and prominent heart again noted. Diffuse osteopenia. <Electronically signed by Rolando De Los Santos > 10/28/20 [id number]
--- NOTE | 2020-10-28 17:21 | REPVR ---
PROCEDURE INFORMATION: Exam: CT Head Without Contrast Exam date and time: 10/28/2020 5:04 PM Age: 85 years old Clinical indication: Injury or trauma; Fall; Blunt trauma (contusions or hematomas); Additional info: Fall, head trauma TECHNIQUE: Imaging protocol: Computed tomography of the head without contrast. Radiation optimization: All CT scans at this facility use at least one of these dose optimization techniques: automated exposure control; mA and/or kV adjustment per patient size (includes targeted exams where dose is matched to clinical indication); or iterative reconstruction. COMPARISON: No relevant prior studies available. FINDINGS: Brain: The brain demonstrates diffuse volume loss. No visible evolving territorial infarct. No hemorrhage. Suggestion of bilateral posterior fossa subdural fluid collections measuring approximately 10 mm in thickness, perhaps chronic hematomas or subdural hygromas. Cerebral ventricles: The ventricles are enlarged in keeping with volume loss. Bones/joints: Unremarkable. No acute fracture. Paranasal sinuses: Trace left ethmoid mucosal thickening. Mastoid air cells: Visualized mastoid air cells are well aerated. Orbital cavity: Prior left lens surgery. Soft tissues: Unremarkable. IMPRESSION: No acute intracranial abnormality seen. Electronically signed by: Lita Andrews On 10/28/2020 17:20:36 PM
[2020-10-28] MEDS: ASPIRIN 81 MG CHEW TABLET PO SCH (18:06)
[2020-10-28] MEDS: hydroCHLOROthiazide 12.5 MG CAPSULE PO SCH (18:06)
[2020-10-28] MEDS: OCUVITE 1 TAB PO SCH (18:06)
[2020-10-28] MEDS: amLODIPine 5 MG TAB PO SCH (18:07)
[2020-10-28] MEDS: LOSARTAN 50MG TABLET PO SCH (18:07)
[2020-10-28] MEDS: OMEPRAZOLE 20 MG CAP PO SCH (18:07)
[2020-10-28] MEDS: LORATADINE 10 MG TAB PO SCH (18:08)
--- NOTE | 2020-10-28 19:34 | ECGEPIP ---
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
[2020-10-28 20:00] VITALS: BP 108/52
[2020-10-28] MEDS: METOPROLOL SUCC (TopROL XL) 50MG **XL** TAB PO SCH ×2 (20:52→21:00)
[2020-10-28] MEDS: AMITRIPTYLINE 10MG TABLET PO SCH ×2 (20:54→21:00)
[2020-10-28] MEDS: MEROPENEM INJ 1 GM in IV 1 EA IV SCH (23:00)
[2020-10-29] VITALS: BP 121/57
[2020-10-29 04:00] VITALS: BP 130/60
[2020-10-29 05:41] LABS: HEMATOCRIT 29.5 % (36.0-47.0); HEMOGLOBIN 9.4 g/dl (12.0-15.5); MEAN CORPUSCULAR HEMOGLOBIN 25.6 pg (27.0-33.0); MEAN CORPUSCULAR HGB CONC 31.9 g/dl (32.0-36.5); MEAN CORPUSCULAR VOLUME 80.4 fl (80.0-96.0); PLATELET COUNT, AUTOMATED 336 10^3/uL (150-450); RED BLOOD COUNT 3.67 10^6/uL (4.00-5.40); WHITE BLOOD COUNT 12.8 10^3/uL (4.0-10.0)
[2020-10-29 05:52] LABS: ALBUMIN 2.4 GM/DL (3.2-5.2); BILIRUBIN,TOTAL 0.3 MG/DL (0.2-1.0); CALCIUM LEVEL 8.5 MG/DL (8.8-10.2); CREATININE FOR GFR 1.01 MG/DL (0.55-1.30); GLOMERULAR FILTRATION RATE 55.2 (>32); POTASSIUM SERUM 3.9 MEQ/L (3.5-5.1); TOTAL PROTEIN 6.7 GM/DL (6.4-8.2)
[2020-10-29 08:00] VITALS: BP 132/60
[2020-10-29] MEDS: hydroCHLOROthiazide 12.5 MG CAPSULE PO SCH (08:51)
[2020-10-29] MEDS: LOSARTAN 50MG TABLET PO SCH (08:51)
[2020-10-29] MEDS: OMEPRAZOLE 20 MG CAP PO SCH (08:51)
[2020-10-29] MEDS: LORATADINE 10 MG TAB PO SCH (08:51)
[2020-10-29] MEDS: KETOCONAZOLE 2% CREAM TOP SCH ×2 (08:52→22:27)
[2020-10-29] MEDS: DOCUSATE SODIUM 100MG CAPSULE PO SCH ×2 (08:52→22:08)
[2020-10-29] MEDS: OCUVITE 1 TAB PO SCH (08:52)
[2020-10-29] MEDS: levETIRAcetam 250MG TABLET (KEPPRA) PO SCH ×2 (08:52→22:08)
[2020-10-29] MEDS: ASPIRIN 81 MG CHEW TABLET PO SCH (08:53)
[2020-10-29] MEDS ORDERED: SLF 3 ML SYR IV PRN (10:45)
[2020-10-29] MEDS: amLODIPine 5 MG TAB PO SCH (11:31)
[2020-10-29] MEDS: MEROPENEM INJ 1 GM in IV 1 EA IV SCH ×2 (11:31→22:10)
[2020-10-29 12:00] VITALS: BP 123/58
[2020-10-29] MEDS: SLF 3 ML SYR IV SCH ×2 (14:10→22:10)
--- NOTE | 2020-10-29 14:43 | IPNPDOC ---
Subjective Date Seen The patient was seen on 10/29/20. Subjective Chief Complaint/HPI Mrs. Goel is an 85 year old female from [facility] who presents with hypoxia, lethargy, and new onset atrial fibrillation. She was seen in the morning. Denies chest pain or dyspnea. She is on 2L of oxygen and A&Ox4. I discussed with her about atrial fibrillation and stroke prevention with anticoagulation. She wants to discuss with her PCP due to her history with epilepsy. Otherwise, on telemetry, she is currently in normal sinus rhythm. On EKG she is also NSR. Her telemetry on admission was suggestive of atrial fibrillation. Objective Physical Examination General Exam: Positive: Alert, Cooperative Eye Exam: Negative: Sclera icteric ENT Exam: Positive: Atraumatic Neck Exam: Positive: Supple Chest Exam: Positive: Clear to auscultation Heart Exam: Positive: Rate Normal, Regular Rhythm Abdomen Exam: Positive: Normal bowel sounds Neuro Exam: Positive: Normal Speech Psych Exam: Positive: Mental status NL, Mood NL, Oriented x 3 Assessment /Plan Assessment Mrs. Goel is an 85 year old female from [facility] who presents with hypoxia, lethargy, and new onset atrial fibrillation. She had leukocytosis and concern that her ESBL UTI returned. UA does demonstrates some pyuria, no growth seen on culture. Leukocytosis improved. Will continue with Meropenem and check ESR and CRP. Otherwise, discussed with patient about stroke ppx with anticoagulation as she has new onset paroxysmal atrial fibrillation. She wishes to defer to her PCP due to her history of epilepsy. Patient has bilateral lymphadenopathy seen on CT angio of chest. Will order a mammogram to look for malignancy as a cause. Patient may need outpatient monitoring of lymphadenopathy if no obvious infectious source. Plan/VTE VTE Prophylaxis Ordered?: Yes Plan 1. Hypoxia -Unclear etiology -88% at room air at [facility] -No obvious cause seen on CT angio chest -Wean oxygen as tolerated 2. ESBL UTI -Culture grew ESBL on 10/23/2020 -Sensitive to meropenem and fosfomycin -Continue monitoring leukocytosis -If ESR, CRP, and leukocytosis are improving, can consider using fosfomycin 3. New onset paroxysmal atrial fibrillation -NSR -Discussed anticoagulation, patient defers to PCP at this time due to history of epilepsy -Echo ordered 4. Epilepsy -Continue Keppra -Pending Keppra levels 5. Hypertension -Continue amlodipine, losartan, HCTZ, and metoprolol succinate 6. GERD -Continue omeprazole 7. DVT ppx -TEDs 8. Bilateral lymphadenopathy -Possibly 2/2 infecious vs malignancy -Will check mammogram -May need to be followed up outpatient Disposition: Pending improvement in respiratory status. Pending ESR, CRP and WBC results. VS, I&O, 24H, Fishbone Vital Signs/I&O Vital Signs Date Time Temp Pulse Resp B/P (MAP) Pulse Ox O2 Delivery O2 Flow Rate FiO2 10/29/20 12:00 97.2 83 18 123/58 (79) 95 Room Air 10/29/20 08:00 2.0 I&O- Last 24 Hours up to 6 AM 10/29/20 06:00 Intake Total 1050 ml Output Total 700 ml Balance 350 ml Laboratory Data 24H LABS Laboratory Tests 2 10/29/20 04:49: Nucleated Red Blood Cells % (auto) 0.0, Anion Gap 7L, Glomerular Filtration Rate 55.2, Calcium Level 8.5L, Total Bilirubin 0.3, Aspartate Amino Transf (AST/SGOT) 15, Alanine Aminotransferase (ALT/SGPT) 19, Alkaline Phosphatase 55, Total Protein 6.7, Albumin 2.4#L, Albumin/Globulin Ratio 0.6L CBC/BMP Laboratory Tests 10/29/20 04:49 Microbiology Microbiology 10/28/20 Urine Culture - Final, Complete 10/28/20 Blood Culture - Preliminary, Resulted No growth after 24 hours . All specim... 10/28/20 Respiratory Virus Panel (PCR) (SIRIA) - Final, Complete 10/28/20 Blood Culture - Preliminary, Resulted No growth after 24 hours . All specim... IRIS KNIGHT DO October 29, 2020 14:43
--- NOTE | 2020-10-29 15:20 | REP ---
INDICATION: bilateral cysts. COMPARISON: CT 10/28/2020. TECHNIQUE: Real-time sonographic evaluation of the kidneys is performed. FINDINGS: Renal cortical echogenicity pattern is normal bilaterally and contours are smooth. There is a simple cyst in the upper pole the right kidney 1.3 x 1.2 x 1.7 cm. There is a simple cyst in the mid left kidney 1.2 cm in diameter. There is no hydronephrosis or large renal calcifications bilaterally. The right kidney measures 11.8 x 5.6 x 5.3 cm. Left renal dimensions are 11.2 x 5.4 x 5.0 cm. The urinary bladder is unremarkable. IMPRESSION: A simple cyst is seen in each kidney. No hydronephrosis. <Electronically signed by Justice Guan > 10/29/20 [id number]
[2020-10-29 19:51] VITALS: BP 133/62
[2020-10-29] MEDS ORDERED: ONDANSETRON 4 MG ORAL DISINTEGRATING TAB PO PRN (21:45)
[2020-10-29] MEDS: AMITRIPTYLINE 10MG TABLET PO SCH (22:08)
[2020-10-29] MEDS: METOPROLOL SUCC (TopROL XL) 50MG **XL** TAB PO SCH (22:09)
[2020-10-30] VITALS: BP 120/53
[2020-10-30 04:00] VITALS: BP 120/55
[2020-10-30] MEDS: SLF 3 ML SYR IV SCH ×3 (05:49→20:10)
[2020-10-30 05:59] LABS: HEMATOCRIT 28.2 % (36.0-47.0); HEMOGLOBIN 8.6 g/dl (12.0-15.5); MEAN CORPUSCULAR HEMOGLOBIN 25.1 pg (27.0-33.0); MEAN CORPUSCULAR HGB CONC 30.5 g/dl (32.0-36.5); MEAN CORPUSCULAR VOLUME 82.2 fl (80.0-96.0); PLATELET COUNT, AUTOMATED 399 10^3/uL (150-450); RED BLOOD COUNT 3.43 10^6/uL (4.00-5.40); WHITE BLOOD COUNT 12.6 10^3/uL (4.0-10.0)
[2020-10-30 06:20] LABS: BLOOD UREA NITROGEN 38 MG/DL (7-18); C REACTIVE PROTEIN QUANTITATIV 6.63 MG/DL (0.00-0.30); CALCIUM LEVEL 8.8 MG/DL (8.8-10.2); CARBON DIOXIDE LEVEL 26 MEQ/L (21-32); CHLORIDE LEVEL 105 MEQ/L (98-107); CREATININE FOR GFR 0.91 MG/DL (0.55-1.30); GLOMERULAR FILTRATION RATE > 60.0 (>32); GLUCOSE, FASTING 149 MG/DL (70-100); POTASSIUM SERUM 3.6 MEQ/L (3.5-5.1); SODIUM LEVEL 138 MEQ/L (136-145)
[2020-10-30 06:31] LABS: ERYTHROCYTE SEDIMENTATION RATE 106 mm/hr (0-30)
[2020-10-30 08:00] VITALS: BP 124/57
[2020-10-30] MEDS: OMEPRAZOLE 20 MG CAP PO SCH (08:58)
[2020-10-30] MEDS: OCUVITE 1 TAB PO SCH (08:59)
[2020-10-30] MEDS: levETIRAcetam 250MG TABLET (KEPPRA) PO SCH ×2 (08:59→20:09)
[2020-10-30] MEDS: LOSARTAN 50MG TABLET PO SCH (08:59)
[2020-10-30] MEDS: hydroCHLOROthiazide 12.5 MG CAPSULE PO SCH (08:59)
[2020-10-30] MEDS: LORATADINE 10 MG TAB PO SCH (09:00)
[2020-10-30] MEDS: ASPIRIN 81 MG CHEW TABLET PO SCH (09:00)
[2020-10-30] MEDS: DOCUSATE SODIUM 100MG CAPSULE PO SCH ×2 (09:00→20:09)
[2020-10-30] MEDS: KETOCONAZOLE 2% CREAM TOP SCH ×2 (09:01→20:10)
--- NOTE | 2020-10-30 09:14 | ECHO ---
DATE OF PROCEDURE: 10/29/2020 Age: 85 Gender: Female Height: 60 inches Weight: 174 pounds Body surface area: 1.76 m2 PATIENT LOCATION: Inpatient PCU, Room 3212. REFERRING PHYSICIAN: Masood Jimenez M.D. INDICATION: Shortness of breath. MEASUREMENTS: 2D Measurements: RV 2.9 cm LV 4.0 cm Septum 1.0 cm Posterior wall 1.0 cm Aortic Root 3.2 cm LA 3.1 cm LVEF 75% Doppler Measurements: AV 1.4 m/s LVOT 1.25 m/s LVOT diameter 1.6 cm MV-E 95, A 119, E/A ratio 0.8 Early mitral deceleration time 314 msec E prime medial 6.8, A prime medial 8, E prime lateral 6.1 Average E/E prime ratio 15/PCWP - 21 mmHg PV 1.1 m/s Pulmonary artery acceleration time 87 msec PASP 42 mmHg IVC 1.5 cm COMMENTS: Normal sinus rhythm without intraventricular conduction disturbance. Technically challenging study in light of the patients body habitus, but some diagnostically useful information was still obtained. M-mode and two-dimensional echocardiography was performed with pulse, continuous wave, color flow, and tissue Doppler studies. Normal left ventricular size, wall thickness, and hyperkinetic wall motion. Normal left atrial size with grade 1 LV diastolic dysfunction and estimated mean left atrial pressure appeared to be mildly increased. Normal right heart chamber sizes and motion with single Doppler sign to suggest moderate pulmonary hypertension. Normal IVC size and collapse against an elevated central venous pressure. Normal aortic dimensions. Mild aortic valvular sclerosis with adequate cusp separation and no apparent insufficiency. Mild mitral annular calcification with normal mitral left motion and no posterior systolic buckling. No visible insufficiency. Normal appearing tricuspid valve and function with no more than trace insufficiency. Unable to detect any intracardiac mass. No pericardial effusion. MTDD
--- NOTE | 2020-10-30 11:14 | REP ---
INDICATION: dyspnea and cough. COMPARISON: Comparison chest x-ray 28 Oct 2020. TECHNIQUE: Two views.. FINDINGS: There is a large hiatal hernia again noted behind the heart. Cardiomegaly is observed. Pleural angles are sharp. No infiltrate is seen. Mild degenerative changes are noted in the thoracic spine and thoracic aorta. IMPRESSION: Cardiomegaly. Large hiatal hernia. Otherwise no acute disease.. <Electronically signed by Rolando De Los Santos > 10/30/20 [id number]
[2020-10-30] MEDS: amLODIPine 5 MG TAB PO SCH (11:37)
[2020-10-30] MEDS: MEROPENEM INJ 1 GM in IV 1 EA IV SCH (11:38)
--- NOTE | 2020-10-30 14:55 | IPNPDOC ---
Subjective Date Seen The patient was seen on 10/30/20. Subjective Chief Complaint/HPI Mrs. Goel is an 85 year old female from [facility] who presents with hypoxia, lethargy, and new onset atrial fibrillation. She was seen this morning. She was weaned off of her oxygen. She denies chest pain, but felt dyspnea. Ordered AP/lateral CXR which was negative for acute pulmonary disease. Objective Physical Examination General Exam: Positive: Alert, Cooperative Eye Exam: Negative: Sclera icteric ENT Exam: Positive: Atraumatic Neck Exam: Positive: Supple Chest Exam: Positive: Clear to auscultation Heart Exam: Positive: Rate Normal, Irregular Rhythm Abdomen Exam: Positive: Normal bowel sounds Neuro Exam: Positive: Normal Speech Psych Exam: Positive: Mental status NL, Mood NL, Oriented x 3 Assessment /Plan Assessment Mrs. Goel is an 85 year old female from [facility] who presents with hypoxia, lethargy, and new onset atrial fibrillation. She had leukocytosis and concern that her ESBL UTI returned. UA does demonstrates some pyuria, no growth seen on culture. Leukocytosis improved. Will continue with Meropenem and check ESR and CRP. Otherwise, discussed with patient about stroke ppx with anticoagulation as she has new onset paroxysmal atrial fibrillation. She wishes to defer to her PCP due to her history of epilepsy. Patient has bilateral axillary adenopathy seen on CT angio of chest. Unable to order mammogram while inpatient. This will need to be done outpatient. Patient may also need outpatient monitoring of lymphadenopathy. Plan/VTE VTE Prophylaxis Ordered?: Yes Plan 1. Hypoxia -Unclear etiology -88% at room air at [facility] -No obvious cause seen on CT angio chest -Weaned off of oxygen 2. ESBL UTI -Culture grew ESBL on 10/23/2020 -Sensitive to meropenem and fosfomycin -Continue monitoring leukocytosis -No significant improvement in leukocytosis and ESR and CRP still elevated. Continue with meropenem day 3 3. New onset paroxysmal atrial fibrillation -NSR -Discussed anticoagulation, patient defers to PCP at this time due to history of epilepsy -Echo demonstrates EF 75% with grade 1 diastolic dysfunction. Moderate pulmonary hypertension 4. Epilepsy -Continue Keppra -Pending Keppra levels 5. Hypertension -Continue amlodipine, losartan, HCTZ, and metoprolol succinate 6. GERD -Continue omeprazole 7. DVT ppx -TEDs 8. Bilateral lymphadenopathy -Possibly 2/2 infecious vs malignancy -Cannot obtain mammogram while inpatient. May need to be done outpatient -May need to be followed up outpatient Disposition: Now at room air, but inflammatory markers and WBC still elevated. Will continue with IV meropenem today. VS, I&O, 24H, Fishbone Vital Signs/I&O Vital Signs Date Time Temp Pulse Resp B/P (MAP) Pulse Ox O2 Delivery O2 Flow Rate FiO2 10/30/20 11:37 82 122/88 10/30/20 08:00 97.0 18 92 Room Air 10/29/20 08:00 2.0 l I&O- Last 24 Hours up to 6 AM 10/30/20 06:00 Intake Total 1310 ml Balance 1310 ml Laboratory Data 24H LABS Laboratory Tests 2 10/30/20 05:23: Nucleated Red Blood Cells % (auto) 0.0, Erythrocyte Sedimentation Rate 106H, Anion Gap 7L, Glomerular Filtration Rate > 60.0, Calcium Level 8.8, C-Reactive Protein, Quantitative 6.63H CBC/BMP Laboratory Tests 10/30/20 05:23 Microbiology Microbiology 10/28/20 Urine Culture - Final, Complete 10/28/20 Blood Culture - Preliminary, Resulted No Growth after 48 hours. All Specime... 10/28/20 Respiratory Virus Panel (PCR) ([facility]) - Final, Complete 10/28/20 Blood Culture - Preliminary, Resulted No Growth after 48 hours. All Specime... IRIS KNIGHT DO October 30, 2020 14:54
[2020-10-30 16:00] VITALS: BP 131/65
[2020-10-30 20:00] VITALS: BP 133/59
[2020-10-30] MEDS: METOPROLOL SUCC (TopROL XL) 50MG **XL** TAB PO SCH (20:09)
[2020-10-30] MEDS: AMITRIPTYLINE 10MG TABLET PO SCH (20:09)
[2020-10-31] MEDS: MEROPENEM INJ 1 GM in IV 1 EA IV SCH ×3 (00:07→22:04)
[2020-10-31 03:54] VITALS: BP 145/65
[2020-10-31] MEDS: SLF 3 ML SYR IV SCH ×3 (05:06→22:04)
[2020-10-31 05:28] LABS: HEMATOCRIT 30.1 % (36.0-47.0); HEMOGLOBIN 8.9 g/dl (12.0-15.5); MEAN CORPUSCULAR HEMOGLOBIN 24.7 pg (27.0-33.0); MEAN CORPUSCULAR HGB CONC 29.6 g/dl (32.0-36.5); MEAN CORPUSCULAR VOLUME 83.4 fl (80.0-96.0); PLATELET COUNT, AUTOMATED 407 10^3/uL (150-450); RED BLOOD COUNT 3.61 10^6/uL (4.00-5.40); WHITE BLOOD COUNT 8.6 10^3/uL (4.0-10.0)
[2020-10-31 05:44] LABS: BLOOD UREA NITROGEN 29 MG/DL (7-18); CALCIUM LEVEL 8.6 MG/DL (8.8-10.2); CARBON DIOXIDE LEVEL 31 MEQ/L (21-32); CHLORIDE LEVEL 107 MEQ/L (98-107); CREATININE FOR GFR 0.92 MG/DL (0.55-1.30); GLOMERULAR FILTRATION RATE > 60.0 (>32); GLUCOSE, FASTING 139 MG/DL (70-100); POTASSIUM SERUM 4.3 MEQ/L (3.5-5.1); SODIUM LEVEL 141 MEQ/L (136-145)
[2020-10-31 05:59] LABS: ERYTHROCYTE SEDIMENTATION RATE 97 mm/hr (0-30)
[2020-10-31 08:00] VITALS: BP 148/67
[2020-10-31] MEDS: DOCUSATE SODIUM 100MG CAPSULE PO SCH ×2 (08:36→22:03)
[2020-10-31] MEDS: LORATADINE 10 MG TAB PO SCH (08:36)
[2020-10-31] MEDS: levETIRAcetam 250MG TABLET (KEPPRA) PO SCH ×2 (08:36→22:02)
[2020-10-31] MEDS: KETOCONAZOLE 2% CREAM TOP SCH ×2 (08:36→22:05)
[2020-10-31] MEDS: LOSARTAN 50MG TABLET PO SCH (08:37)
[2020-10-31] MEDS: OCUVITE 1 TAB PO SCH (08:37)
[2020-10-31] MEDS: hydroCHLOROthiazide 12.5 MG CAPSULE PO SCH (08:37)
[2020-10-31] MEDS: ASPIRIN 81 MG CHEW TABLET PO SCH (08:37)
[2020-10-31] MEDS: OMEPRAZOLE 20 MG CAP PO SCH (08:37)
[2020-10-31] MEDS: amLODIPine 5 MG TAB PO SCH (11:49)
--- NOTE | 2020-10-31 14:12 | IPNPDOC ---
Subjective Date Seen The patient was seen on 10/31/20. Subjective Chief Complaint/HPI Mrs. Goel is an 85 year old female from [facility] who presents with hypoxia, lethargy, and new onset atrial fibrillation. She was seen this morning. Denies chest pain or dyspnea. She is at room air this morning. ESR and CRP elevated, but trending downwards. Will continue Meropenem today and switch to Fosfomycin tomorrow Objective Physical Examination General Exam: Positive: Alert, Cooperative Eye Exam: Negative: Sclera icteric ENT Exam: Positive: Atraumatic Neck Exam: Positive: Supple Chest Exam: Positive: Clear to auscultation Heart Exam: Positive: Rate Normal, Irregular Rhythm Abdomen Exam: Positive: Normal bowel sounds Neuro Exam: Positive: Normal Speech Psych Exam: Positive: Mental status NL, Mood NL, Oriented x 3 Assessment /Plan Assessment Mrs. Goel is an 85 year old female from [facility] who presents with hypoxia, lethargy, and new onset atrial fibrillation. She had leukocytosis and concern that her ESBL UTI returned. UA does demonstrates some pyuria, no growth seen on culture. Leukocytosis improved. Will continue with Meropenem and check ESR and CRP. Otherwise, discussed with patient about stroke ppx with anticoagulation as she has new onset paroxysmal atrial fibrillation. She wishes to defer to her PCP due to her history of epilepsy. Patient has bilateral axillary adenopathy seen on CT angio of chest. Unable to order mammogram while inpatient. This will need to be done outpatient. Patient may also need outpatient monitoring of lymphadenopathy. Plan/VTE VTE Prophylaxis Ordered?: Yes Plan 1. Hypoxia -Unclear etiology -88% at room air at [facility] -No obvious cause seen on CT angio chest -Weaned off of oxygen 2. ESBL UTI -Culture grew ESBL on 10/23/2020 -Sensitive to meropenem and fosfomycin -ESR and CRP trending downwards. leukocytosis resolved. Continue with meropenem day 4 -Plan for Fosfomycin on discharge 3. New onset paroxysmal atrial fibrillation -NSR -Discussed anticoagulation, patient defers to PCP at this time due to history of epilepsy -Echo demonstrates EF 75% with grade 1 diastolic dysfunction. Moderate pulmonary hypertension 4. Epilepsy -Continue Keppra 500mg BID -I spoke with neurology, Dr. Slater. He is unfamiliar with the patient. Recommended that patient follow up with her PCP about supratherupeutic keppra level (59.5). 5. Hypertension -Continue amlodipine, losartan, HCTZ, and metoprolol succinate 6. GERD -Continue omeprazole 7. DVT ppx -TEDs 8. Bilateral lymphadenopathy -Possibly 2/2 infecious vs malignancy -Cannot obtain mammogram while inpatient. May need to be done outpatient -May need to be followed up outpatient Disposition: Leukocytosis resolved. ESR and CRP trending downwards. Will give one more day of Meropenem. Plan for discharge back to [facility] tomorrow with fosfomycin x1 dose. VS, I&O, 24H, Fishbone Vital Signs/I&O Vital Signs Date Time Temp Pulse Resp B/P (MAP) Pulse Ox O2 Delivery O2 Flow Rate FiO2 10/31/20 11:49 74 126/72 10/31/20 08:00 97.5 18 93 Room Air 10/29/20 08:00 2.0 I&O- Last 24 Hours up to 6 AM 10/31/20 06:00 Intake Total 320 ml Balance 320 ml Laboratory Data 24H LABS Laboratory Tests 2 10/31/20 05:00: Nucleated Red Blood Cells % (auto) 0.0, Erythrocyte Sedimentation Rate 97H, Anion Gap 3L, Glomerular Filtration Rate > 60.0, Calcium Level 8.6L, C-Reactive Protein, Quantitative 4.00H CBC/BMP Laboratory Tests 10/31/20 05:00 Microbiology Microbiology 10/28/20 Urine Culture - Final, Complete 10/28/20 Blood Culture - Preliminary, Resulted No Growth after 72 hours. All specime... 10/28/20 Respiratory Virus Panel (PCR) ([facility]) - Final, Complete 10/28/20 Blood Culture - Preliminary, Resulted No Growth after 72 hours. All specime... IRIS KNIGHT DO October 31, 2020 14:12
[2020-10-31 16:05] VITALS: BP 138/64
[2020-10-31 22:00] VITALS: BP 156/80
[2020-10-31] MEDS: AMITRIPTYLINE 10MG TABLET PO SCH (22:03)
[2020-10-31] MEDS: METOPROLOL SUCC (TopROL XL) 50MG **XL** TAB PO SCH (22:04)
[2020-11-01 06:00] VITALS: BP 120/78
[2020-11-01] MEDS: SLF 3 ML SYR IV SCH (06:45)
[2020-11-01 07:22] LABS: HEMOGLOBIN 9.5 g/dl (12.0-15.5); MEAN CORPUSCULAR HEMOGLOBIN 25.1 pg (27.0-33.0); MEAN CORPUSCULAR HGB CONC 29.7 g/dl (32.0-36.5); MEAN CORPUSCULAR VOLUME 84.4 fl (80.0-96.0); PLATELET COUNT, AUTOMATED 452 10^3/uL (150-450); RED BLOOD COUNT 3.79 10^6/uL (4.00-5.40); WHITE BLOOD COUNT 9.3 10^3/uL (4.0-10.0)
[2020-11-01 07:41] LABS: BLOOD UREA NITROGEN 18 MG/DL (7-18); CALCIUM LEVEL 8.9 MG/DL (8.8-10.2); CARBON DIOXIDE LEVEL 33 MEQ/L (21-32); CHLORIDE LEVEL 102 MEQ/L (98-107); CREATININE FOR GFR 0.86 MG/DL (0.55-1.30); GLOMERULAR FILTRATION RATE > 60.0 (>32); GLUCOSE, FASTING 172 MG/DL (70-100); POTASSIUM SERUM 4.9 MEQ/L (3.5-5.1); SODIUM LEVEL 140 MEQ/L (136-145)
[2020-11-01 07:49] LABS: ERYTHROCYTE SEDIMENTATION RATE 106 mm/hr (0-30)
[2020-11-01] MEDS: ASPIRIN 81 MG CHEW TABLET PO SCH (08:19)
[2020-11-01] MEDS: LORATADINE 10 MG TAB PO SCH (08:19)
[2020-11-01] MEDS: DOCUSATE SODIUM 100MG CAPSULE PO SCH (08:19)
[2020-11-01] MEDS: levETIRAcetam 250MG TABLET (KEPPRA) PO SCH (08:19)
[2020-11-01] MEDS: KETOCONAZOLE 2% CREAM TOP SCH (08:19)
[2020-11-01] MEDS: OMEPRAZOLE 20 MG CAP PO SCH (08:19)
[2020-11-01] MEDS: OCUVITE 1 TAB PO SCH (08:19)
[2020-11-01] MEDS: hydroCHLOROthiazide 12.5 MG CAPSULE PO SCH (08:20)
[2020-11-01 08:24] VITALS: BP 148/74
[2020-11-01] MEDS: LOSARTAN 50MG TABLET PO SCH (08:24)
[2020-11-01] MEDS ORDERED: FOSFOMYCIN TROMETHAMINE 3 GM POWDER PACKET (MONUROL) PO ONE (11:00)
[2020-11-01] MEDS: MEROPENEM INJ 1 GM in IV 1 EA IV SCH (11:00)
--- NOTE | 2020-11-01 22:41 | DS.PDOC ---
Discharge Summary General Date of Admission October 28, 2020 at 12:29 Date of Discharge November 01, 2020 Discharge Summary PROCEDURES PERFORMED DURING STAY: None ADMITTING DIAGNOSES: 1. Acute hypoxia 2. UTI 3. New onset atrial fibrillation 4. Epilepsy 5. Hypertension 6. GERD DISCHARGE DIAGNOSES: 1. Acute hypoxia 2. ESBL UTI 3. New onset atrial fibrillation 4. Epilepsy 5. Hypertension 6. GERD COMPLICATIONS/CHIEF COMPLAINT: Uti (Urinary Tract Infection). HISTORY OF PRESENT ILLNESS: Copied from admitting physician's H&P 85 year old female from assisted living ([facility]), recently seen in ED for uti, discharged with cefdinir that was subsequently transitioned to macrobid, sent to ED for hypoxia and lethargy. She was found to be 88 % on room air at her facility. She notes a cough, non-productive. She also noted an unwitnessed mechanical fall on Wednesday10/25/20. On exam she denied chest pain, headaches, changes in vision, N/V/D. HOSPITAL COURSE: Patient required 2L of NC. This may have been related to her ESBL UTI. She was treated with meropenem which targeted the ESBL UTI. She was weaned off of the oxygen and feeling better afterwards. Repeat urine culture was negative. She had about 5 days of Meropenem, then switched to one dose of Fosfomycin which the ESBL UTI was sensitive to. Otherwise, she had an echocardiogram for her new onset atrial fibrillation. The echocardiogram demonstrates EF 75% with grade 1 diastolic dysfunction. Moderate pulmonary hypertension. I discussed anticoagulation with her including the risks and benefits. She wishes to defer to her PCP as she has history of epilepsy. In addition, patient has bilateral axillary adenopathy seen on CT angio of chest. Unable to order mammogram while inpatient. This may need to be done outpatient. Patient may also need outpatient monitoring of lymphadenopathy. If there is no resolution after treatment with antibiotics, it may need to be biopsied to rule out malignancy. Otherwise, this morning, she felt well. Denies chest pain or dyspnea. Heart rate was controlled. She felt ready to return to [facility] and was discharged back to [facility]. DISCHARGE MEDICATIONS: Please see below. ALLERGIES: Please see below. PHYSICAL EXAMINATION ON DISCHARGE: VITAL SIGNS: Please see below. GENERAL: Comfortable, in no apparent distress HEENT: Head normocephalic, atraumatic NECK: Supple CARDIOVASCULAR EXAMINATION: Irregular but rate controled RESPIRATORY EXAMINATION: Lungs clear to auscultation bilaterally ABDOMINAL EXAMINATION: Soft, non-tender, normal bowel sounds EXTREMITIES: No pitting edema bilaterally SKIN: Warm and dry NEUROLOGICAL EXAMINATION: CN 3-12 grossly intact PSYCHIATRIC EXAMINATION: Normal mood and affect LABORATORY DATA: Please see below. IMAGING: Radiologist interpretation CT abd/pelvis with IV contrast only 1. 15 mm possible nodule at the tail of the pancreas may warrant further investigation and follow-up. 2. Hypodense lesions in the liver and kidneys likely represent benign cysts although ultrasound follow-up may be warranted for confirmation. 3. Distended gallbladder with small gallstones but no further evidence to suggest acute cholecystitis. Correlation is recommended. 4. Compression deformity at L3 of indeterminate age. 5. Large sliding hiatal hernia. CT angio chest No evidence for pulmonary embolus. No acute mediastinal or pleural parenchymal process. Large sliding hiatal hernia. Bilateral axillary adenopathy warrants further investigation. US gallbladder Gallstone in the gallbladder, no evidence of gallbladder wall thickening, pericholecystic fluid or biliary dilatation. XR rib No rib fracture noted. Hiatal hernia and prominent heart again noted. Diffuse osteopenia. CT head No acute intracranial abnormality seen. PROGNOSIS: Good ACTIVITY: As tolerated. DIET: 2gm sodium DISCHARGE PLAN: Return to [facility] DISPOSITION: [facility]. DISCHARGE INSTRUCTIONS: 1. Follow up with PCP within 1 week ITEMS TO FOLLOWUP ON ON OUTPATIENT: 1. Discussion with PCP about anticoagulation for stroke ppx in the setting of atrial fibrillation. I discussed risks and benefits with patient, but patient wanted to defer to PCP due to her history of epilepsy. 2. Bilateral axillary lymphadenopathy. May need follow up to ensure resolution. May be secondary to infection, but if it does not resolve after antibiotics, may need to be further investigated for malignancy. DISCHARGE CONDITION: Stable. Total time spent on discharge planning, discharge summary, and medication rec onciliation: 55 minutes Vital Signs/I&Os Vital Signs Date Time Temp Pulse Resp B/P (MAP) Pulse Ox O2 Delivery O2 Flow Rate FiO2 11/01/20 08:24 148/74 11/01/20 06:00 97.8 76 18 90 Room Air 10/29/20 08:00 2.0 I&O- Last 24 Hours up to 6 AM 11/01/20 06:00 Intake Total 530 ml Output Total 200 ml Balance 330 ml Laboratory Data Labs 24H Laboratory Tests 2 11/01/20 06:42: Nucleated Red Blood Cells % (auto) 0.0, Erythrocyte Sedimentation Rate 106H, Anion Gap 5L, Glomerular Filtration Rate > 60.0, Calcium Level 8.9, C-Reactive Protein, Quantitative 2.70H CBC/BMP Laboratory Tests 11/01/20 06:42 Microbiology Microbiology 10/31/20 Respiratory Virus Panel (PCR) ([facility]) - Final, Complete 10/28/20 Urine Culture - Final, Complete 10/28/20 Blood Culture - Preliminary, Resulted No Growth after 72 hours. All specime... 10/28/20 Respiratory Virus Panel (PCR) ([facility]) - Final, Complete 10/28/20 Blood Culture - Preliminary, Resulted No Growth after 72 hours. All specime... Discharge Medications Scheduled Amitriptyline HCl (Amitriptyline HCl) 10 Mg Tablet, 10 MG PO QHS, (Reported) Amlodipine Besylate (Amlodipine Besylate) 5 Mg Tablet, 5 MG PO DAILY, (Reported) TAKES AT 1200 Aspirin (Aspirin) 81 Mg Tab.chew, 81 MG PO DAILY, (Reported) C,E,Zinc,Copper 24/Om3/Lut/Abram (Ocuvite Adult 50 Plus Softgel) 1 Each Capsule, 1 CAP PO DAILY, (Reported) Calcium Carbonate/Vitamin D3 (Calcium 600-Vit D3 400 Tablet) 1 Each Tablet, 1 TAB PO BID, (Reported) Docusate Sodium (Colace) 100 Mg Capsule, 100 MG PO BID, (Reported) Ergocalciferol (Vitamin D2) (Vitamin D2) 50,000 Units Cap, 50,000 UNITS PO QWEEK, (Reported) FRIDAYS Hydrochlorothiazide (Hydrochlorothiazide) 12.5 Mg Capsule, 12.5 MG PO DAILY, (Reported) Ketoconazole (Ketoconazole) 15 Gm Cream..g., 1 DOSE TOP BID, (Reported) APPLY TO ABDOMINAL FOLDS FOR 14 DAYS STARTED 10/27/20 Levetiracetam (Keppra) 500 Mg Tablet, 500 MG PO BID, (Reported) Loratadine (Loratadine) 10 Mg Tablet, 10 MG PO DAILY, (Reported) Losartan Potassium (Losartan Potassium) 100 Mg Tablet, 100 MG PO DAILY, (Reported) Metoprolol Succinate (Toprol Xl) 50 Mg Tab.er.24h, 50 MG PO QHS, (Reported) Multivitamin with Folic Acid (Tab-A-Demar Tablet) 400 Mcg Tablet, 1 TAB PO DAILY, (Reported) [place]-3/Dha/Epa/Fish Oil (Fish Oil 500 mg Softgel) 1 Each Capsule, 500 MG PO DAILY, (Reported) Omeprazole (Omeprazole) 20 Mg Capsule.dr, 20 MG PO DAILY, (Reported) Scheduled PRN Acetaminophen (Acetaminophen 8 Hour) 650 Mg Tablet.er, 650 MG PO Q8H PRN for PAIN, (Reported) Magnesium Hydroxide (Milk of Magnesia) 400 Mg/5 Ml Oral.susp, 30 ML PO BID PRN for CONSTIPATION, (Reported) Allergies Coded Allergies: chocolate flavor (Unverified Allergy, Unknown, 10/23/20) Macrolide Antibiotics (Verified Adverse Reaction, Mild, NAUSEA, 10/23/20) Penicillins (Verified Adverse Reaction, Mild, PARATHESIA of FEET, 10/23/20) Quinolones (Verified Adverse Reaction, Mild, NAUSEA, 10/23/20) pseudoephedrine (Verified Adverse Reaction, Mild, NEVAREZ/PALPATATIONS, 10/23/20) IRIS KNIGHT DO November 01, 2020 22:40
== END 2020-11-01 11:27 | DRG 206 ==
LOC: M ED 07:31 → EDBD 07:31 → M ED INP 12:29 → ENRESERV 14:37 → M PCU 16:16 → M MSPAV 10-31 15:57
PROVIDERS: ADMIT Internal Medicine; ATTEND Internal Medicine
DX: R09.02 Hypoxemia (principal); N39.0 Urinary tract infection, site not specified; I48.0 Paroxysmal atrial fibrillation; Z66 Do not resuscitate; R59.1 Generalized enlarged lymph nodes; K21.9 Gastro-esophageal reflux disease without esophagitis; I10 Essential (primary) hypertension; G40.909 Epilepsy, unspecified, not intractable, without status epilepticus; R29.6 Repeated falls; D72.829 Elevated white blood cell count, unspecified; Z79.82 Long term (current) use of aspirin; Z79.899 Other long term (current) drug therapy; Z88.1 Allergy status to other antibiotic agents; Z88.0 Allergy status to penicillin; Z88.8 Allergy status to other drugs, medicaments and biological substances; Z20.822 Contact with and (suspected) exposure to COVID-19; Z91.018 Allergy to other foods

== ENCOUNTER → 2020-12-06 | Outpatient (REF) | payer MEDICARE, MEDICAID ==
[~2020-12-06] MED LIST changes: +AMIT10TA7 PO; +AMLO1TAB24 PO; +ASPI81CH48 PO; +CALC1TAB74 PO; +DIFL150T PO; +FISH306C PO; +HYDR12CA PO; +KEPP1TAB PO; +KETO2CR TOP; +LORA-622 PO; +LOSA100T50 PO; +MACR100C43 PO; +MILKSUS3 PO; +OMEP1CAP73 PO; +QC A650T3 PO; +TAB-TAB3 PO; +TOPR50TA PO; +VITA50005 PO
[2020-12-06 09:56] LABS: BASO % 0.5 % (0.0-1.0); EOS # 0.2 10^3/uL (0.0-0.5); EOS % 3.2 % (0.0-3.0); HEMATOCRIT 31.2 % (36.0-47.0); HEMOGLOBIN 9.4 g/dl (12.0-15.5); LYMPH # 1.9 10^3/uL (1.5-5.0); LYMPH % 26.2 % (24.0-44.0); MEAN CORPUSCULAR HEMOGLOBIN 24.7 pg (27.0-33.0); MEAN CORPUSCULAR HGB CONC 30.1 g/dl (32.0-36.5); MEAN CORPUSCULAR VOLUME 81.9 fl (80.0-96.0); MONO # 0.7 10^3/uL (0.0-0.8); MONO % 9.1 % (2.0-8.0); NEUTROPHILS # 4.4 10^3/uL (1.5-8.5); NEUTROPHILS % 60.6 % (36.0-66.0); PLATELET COUNT, AUTOMATED 432 10^3/uL (150-450); RED BLOOD COUNT 3.81 10^6/uL (4.00-5.40); WHITE BLOOD COUNT 7.3 10^3/uL (4.0-10.0)
== END ==
PROVIDERS: ATTEND Internal Medicine
DX: D64.9 Anemia, unspecified (principal)

== ENCOUNTER → 2020-12-12 | Outpatient (CLI) | payer MEDICARE, MEDICAID ==
[~2020-12-12] MED LIST changes: +ERGO500029 PO; -VITA50005 PO
--- NOTE | 2020-12-12 13:42 | REP ---
INDICATION: L04.8 YONATHAN ACUTE LYMPHADENITIS. COMPARISON: Multiples without prior DBT imaging for comparison. No prior axillary ultrasound for comparison. The patient's latest prior mammogram is a 2D examination of 01/21/2015. TECHNIQUE: Digital mammography was obtained bilaterally in the CC and MLO projections using both 2D and 3D modalities and compared to the prior exams. By history patient was found to have bilateral axillary node enlargement on prior CT which was obtained 10/28/2020. That exam was reviewed along with today's exam. There are no breast complaints per se. Bilateral axillary ultrasonography was also obtained today. This was obtained using anatomical intelligence and shear wave elastography where indicated. FINDINGS: The breasts are unchanged in size and shape. Scattered heterogenous and nodular fibroglandular elements are seen bilaterally in a stable appearing pattern. Stable benign appearing calcifications are seen bilaterally In the axillary region of the right breast there is a partially imaged at least 2.6 cm sized density with slightly irregular margins. This was not present on prior mammograms. No other suspicious findings are potentially suspicious findings are seen in either breast. Diagnostic ultrasonography of the right axilla shows multiple peripherally hypoechoic centrally echogenic solid nodules ranging in size from just a cm to over 4 cm with the largest 3 measuring 2.2 x 2.3 x 2.6 cm, 1.5 x 2.5 x 4.2 cm, 1.6 x 0.7 x 3.1 cm. These large nodules do not retain a reniform shape. Diagnostic ultrasonography of the left axilla shows multiple peripherally hypoechoic centrally echogenic solid nodules the largest of which measure 1.7 x 1.5 x 3.7 cm, 1.4 x 1.3 x 2.2 cm, 1.5 x 0.7 x 1.8 cm. These also lack of reniform shape. The Volpara volumetric breast density pattern is b. IMPRESSION: BIRADS/ACR category 4 mammogram. And ACR category 4 bilateral axillary ultrasound. Abnormal appearing solid nodule in the right axilla seen mammographically, as described above, and consistent with a morphologically enlarged and abnormal appearing solid nodule likely a lymph node. Ultrasonographically, there are bilateral enlarged morphologically abnormal solid nodules likely lymphadenopathy the etiology of which is uncertain. Malignancy versus benign infiltrating etiology versus infection. Biopsy may be necessary. This patient's Tyrer-Cuzick lifetime breast cancer risk assessment score is N\A%. This mammogram was interpreted with the aid of an FDA-approved computer-aided detection system. The patient states she had a clinical breast exam in OVER A YEAR. The patient letter being requested is M4. RECOMMENDATION: As above <Electronically signed by Hemant Dupree > 12/12/20 [id number]
== END ==
LOC: M WHC 10:00
PROVIDERS: ATTEND Internal Medicine
DX: Z12.31 Encounter for screening mammogram for malignant neoplasm of breast (principal); L04.8 Acute lymphadenitis of other sites; N64.59 Other signs and symptoms in breast; L03.121 Acute lymphangitis of right axilla; L03.122 Acute lymphangitis of left axilla
CPT/HCPCS: 76882; 77066; G0279

== ENCOUNTER → 2021-03-01 | Outpatient (REF) | payer MEDICARE, MEDICAID ==
[2021-03-01 17:30] LABS: AMORPHOUS SEDIMENT SMALL (NEGATIVE); APPEARANCE, URINE CLOUDY (CLEAR); BACTERIA, URINE AUTO 1+ (NEGATIVE); BILIRUBIN, URINE AUTO NEGATIVE (NEGATIVE); BLOOD, URINE BLOOD NEGATIVE (NEGATIVE); COLOR, URINE YELLOW (YELLOW); GLUCOSE, URINE (UA) AUTO NEGATIVE (NEGATIVE); KETONE, URINE AUTO NEGATIVE (NEGATIVE); LEUKOCYTE ESTERASE, URINE AUTO 3+ (NEGATIVE); NITRITE, URINE AUTO NEGATIVE (NEGATIVE); PROTEIN, URINE AUTO NEGATIVE (NEGATIVE); RBC, URINE AUTO 2 /HPF (0-3); SPECIFIC GRAVITY URINE AUTO 1.006 (1.002-1.035); SQUAMOUS EPITHELIAL CELL UR AU 0 /HPF (0-6); UROBILINOGEN, URINE AUTO 0.2 mg/dL (0.0-2.0); WBC, URINE AUTO TNTC /HPF (0-3)
== END ==
LOC: M LAB REF 17:09
PROVIDERS: ATTEND Physician Assistant Medical
DX: N39.0 Urinary tract infection, site not specified (principal)

== ENCOUNTER → 2021-03-20 | Outpatient (REF) | payer MEDICARE, MEDICAID ==
[2021-03-20 12:52] LABS: APPEARANCE, URINE HAZY (CLEAR); BACTERIA, URINE AUTO 1+ (NEGATIVE); BILIRUBIN, URINE AUTO NEGATIVE (NEGATIVE); BLOOD, URINE BLOOD NEGATIVE (NEGATIVE); COLOR, URINE YELLOW (YELLOW); GLUCOSE, URINE (UA) AUTO NEGATIVE (NEGATIVE); KETONE, URINE AUTO NEGATIVE (NEGATIVE); LEUKOCYTE ESTERASE, URINE AUTO 3+ (NEGATIVE); MUCUS, URINE SMALL (NEGATIVE); NITRITE, URINE AUTO NEGATIVE (NEGATIVE); PROTEIN, URINE AUTO NEGATIVE (NEGATIVE); RBC, URINE AUTO 1 /HPF (0-3); SPECIFIC GRAVITY URINE AUTO 1.008 (1.002-1.035); SQUAMOUS EPITHELIAL CELL UR AU 0 /HPF (0-6); UROBILINOGEN, URINE AUTO 0.2 mg/dL (0.0-2.0); WBC, URINE AUTO 165 /HPF (0-3)
== END ==
PROVIDERS: ATTEND Internal Medicine
DX: N39.0 Urinary tract infection, site not specified (principal)

== ENCOUNTER → 2021-05-12 | Outpatient (REF) | payer MEDICARE, MEDICAID ==
[2021-05-12 11:07] LABS: BASO # 0.1 10^3/uL (0.0-0.2); BASO % 1.1 % (0.0-1.0); EOS # 0.3 10^3/uL (0.0-0.5); EOS % 4.7 % (0.0-3.0); HEMATOCRIT 37.7 % (36.0-47.0); HEMOGLOBIN 12.6 g/dl (12.0-15.5); LYMPH # 1.9 10^3/uL (1.5-5.0); MEAN CORPUSCULAR HGB CONC 33.4 g/dl (32.0-36.5); MEAN CORPUSCULAR VOLUME 95.7 fl (80.0-96.0); MONO # 0.7 10^3/uL (0.0-0.8); MONO % 9.5 % (2.0-8.0); NEUTROPHILS % 57.3 % (36.0-66.0); PLATELET COUNT, AUTOMATED 303 10^3/uL (150-450); RED BLOOD COUNT 3.94 10^6/uL (4.00-5.40); WHITE BLOOD COUNT 7.1 10^3/uL (4.0-10.0)
[2021-05-12 11:39] LABS: ALBUMIN 3.2 GM/DL (3.2-5.2); ALT/SGPT 71 U/L (12-78); BILIRUBIN,TOTAL 0.5 MG/DL (0.2-1.0); BLOOD UREA NITROGEN 18 MG/DL (7-18); CALCIUM LEVEL 9.4 MG/DL (8.8-10.2); CARBON DIOXIDE LEVEL 29 MEQ/L (21-32); CHLORIDE LEVEL 97 MEQ/L (98-107); CREATININE FOR GFR 0.87 MG/DL (0.55-1.30); GLOMERULAR FILTRATION RATE > 60.0 (>32); GLUCOSE, FASTING 183 MG/DL (70-100); SODIUM LEVEL 134 MEQ/L (136-145); TOTAL PROTEIN 7.2 GM/DL (6.4-8.2)
== END ==
PROVIDERS: ATTEND Internal Medicine
DX: I48.91 Unspecified atrial fibrillation (principal); D64.9 Anemia, unspecified; G40.909 Epilepsy, unspecified, not intractable, without status epilepticus

== ENCOUNTER 2021-07-29 08:31 | Emergency (ER) | payer MEDICARE, MEDICAID ==
[~2021-07-29] VITALS: Ht 162.6 cm; Wt 78.6 kg
[~2021-07-29 08:31] MED LIST changes: +LOSA100T45 PO; -LOSA100T50 PO
[2021-07-29 12:46] VITALS: BP 128/60
== END 2021-07-29 13:04 | disposition home or self-care (01) ==
LOC: EDBD 08:31 → M ED 08:31
DX: S00.83XA Contusion of other part of head, initial encounter (principal); S80.01XA Contusion of right knee, initial encounter; W19.XXXA Unspecified fall, initial encounter; Y92.128 Other place in nursing home as the place of occurrence of the external cause; R22.41 Localized swelling, mass and lump, right lower limb; E11.9 Type 2 diabetes mellitus without complications; I10 Essential (primary) hypertension; G43.909 Migraine, unspecified, not intractable, without status migrainosus; K21.9 Gastro-esophageal reflux disease without esophagitis; Z87.09 Personal history of other diseases of the respiratory system; Z88.0 Allergy status to penicillin; Z88.1 Allergy status to other antibiotic agents; Z88.8 Allergy status to other drugs, medicaments and biological substances; Z91.018 Allergy to other foods; Z79.899 Other long term (current) drug therapy; Z79.82 Long term (current) use of aspirin

== ENCOUNTER 2021-08-01 11:50 | Inpatient (IN) | payer MEDICARE, MEDICAID ==
[~2021-08-01] VITALS: Ht 162.6 cm; Wt 78.3 kg
[2021-08-01 13:28] LABS: BASO # 0.1 10^3/uL (0.0-0.2); BASO % 0.6 % (0.0-1.0); EOS # 0.2 10^3/uL (0.0-0.5); EOS % 1.6 % (0.0-3.0); HEMATOCRIT 33.5 % (36.0-47.0); HEMOGLOBIN 10.9 g/dl (12.0-15.5); LYMPH # 1.6 10^3/uL (1.5-5.0); LYMPH % 16.2 % (24.0-44.0); MEAN CORPUSCULAR HEMOGLOBIN 30.9 pg (27.0-33.0); MEAN CORPUSCULAR HGB CONC 32.5 g/dl (32.0-36.5); MEAN CORPUSCULAR VOLUME 94.9 fl (80.0-96.0); MONO # 1.2 10^3/uL (0.0-0.8); MONO % 12.2 % (2.0-8.0); NEUTROPHILS # 6.6 10^3/uL (1.5-8.5); NEUTROPHILS % 68.5 % (36.0-66.0); PLATELET COUNT, AUTOMATED 361 10^3/uL (150-450); RED BLOOD COUNT 3.53 10^6/uL (4.00-5.40); WHITE BLOOD COUNT 9.6 10^3/uL (4.0-10.0)
[2021-08-01] MEDS ORDERED: MACR100C42 PO (13:51)
[2021-08-01] MEDS ORDERED: MIRA3350 PO (13:51)
[2021-08-01] MEDS ORDERED: HOME MED LIST COMPLETE! XX SCH (13:55)
[2021-08-01 13:59] LABS: ALBUMIN 2.7 GM/DL (3.2-5.2); BILIRUBIN,DIRECT 0.2 MG/DL (0.0-0.2); BILIRUBIN,TOTAL 0.4 MG/DL (0.2-1.0); CALCIUM LEVEL 9.5 MG/DL (8.8-10.2); CREATININE FOR GFR 0.94 MG/DL (0.55-1.30); FREE T4 1.34 NG/DL (0.76-1.46); GLOMERULAR FILTRATION RATE 59.8 (>32); POTASSIUM SERUM 3.6 MEQ/L (3.5-5.1); THYROID STIMULATING HORMONE 0.237 uIU/ML (0.358-3.740); TOTAL PROTEIN 6.8 GM/DL (6.4-8.2)
[2021-08-01] MEDS ORDERED: NS 500 ML IV ONE (14:25)
[2021-08-01] MEDS ORDERED: MIRALAX *UNIT DOSE* 17GM PACKET PO PRN (16:10)
[2021-08-01] MEDS ORDERED: MOM 30ML SUSPENSION UDC PO PRN (16:10)
[2021-08-01] MEDS ORDERED: ACETAMINOPHEN 650MG ER TAB (TYLENOL ARTHRITIS) PO PRN (16:10)
[2021-08-01] MEDS ORDERED: MEROPENEM INJ 1 GM in IV 1 EA IV ONE (17:30)
[2021-08-01] MEDS ORDERED: NS 1,000 ML IV SCH (18:45)
[2021-08-01 22:14] VITALS: BP_SYST 171; BP_SYST 173; BP_SYST 174; BP_DIAS 82; BP_DIAS 88
[2021-08-01] MEDS: DOCUSATE SODIUM 100MG CAPSULE PO SCH (22:43)
[2021-08-01] MEDS: levETIRAcetam 250MG TABLET (KEPPRA) PO SCH (22:44)
[2021-08-01] MEDS: CALCIUM/VITAMIN D 500 MG TAB PO SCH (22:44)
[2021-08-01] MEDS: METOPROLOL SUCC (TopROL XL) 50MG **XL** TAB PO SCH (22:45)
[2021-08-01] MEDS: AMITRIPTYLINE 10MG TABLET PO SCH (22:48)
[2021-08-02 05:22] VITALS: BP_SYST 144; BP_SYST 152; BP_SYST 155; BP_DIAS 72; BP_DIAS 74
[2021-08-02 05:58] LABS: HEMATOCRIT 31.6 % (36.0-47.0); HEMOGLOBIN 10.1 g/dl (12.0-15.5); MEAN CORPUSCULAR HEMOGLOBIN 30.8 pg (27.0-33.0); MEAN CORPUSCULAR VOLUME 96.3 fl (80.0-96.0); PLATELET COUNT, AUTOMATED 334 10^3/uL (150-450); RED BLOOD COUNT 3.28 10^6/uL (4.00-5.40); WHITE BLOOD COUNT 8.1 10^3/uL (4.0-10.0)
[2021-08-02 06:00] VITALS: BP 149/91
[2021-08-02 06:29] LABS: BLOOD UREA NITROGEN 17 MG/DL (7-18); CALCIUM LEVEL 8.5 MG/DL (8.8-10.2); CARBON DIOXIDE LEVEL 28 MEQ/L (21-32); CHLORIDE LEVEL 106 MEQ/L (98-107); CREATININE FOR GFR 0.74 MG/DL (0.55-1.30); GLOMERULAR FILTRATION RATE > 60.0 (>32); GLUCOSE, FASTING 149 MG/DL (70-100); POTASSIUM SERUM 3.5 MEQ/L (3.5-5.1); SODIUM LEVEL 139 MEQ/L (136-145)
[2021-08-02] MEDS: hydroCHLOROthiazide 12.5 MG CAPSULE PO SCH (09:29)
[2021-08-02] MEDS: DOCUSATE SODIUM 100MG CAPSULE PO SCH ×2 (09:29→20:39)
[2021-08-02] MEDS: OCUVITE 1 TAB PO SCH (09:29)
[2021-08-02] MEDS: OMEPRAZOLE 20MG CAP PO SCH (09:29)
[2021-08-02] MEDS: levETIRAcetam 250MG TABLET (KEPPRA) PO SCH ×2 (09:29→20:39)
[2021-08-02] MEDS: ASPIRIN 81 MG CHEW TABLET PO SCH (09:29)
[2021-08-02] MEDS: LORATADINE 10 MG TAB PO SCH (09:29)
[2021-08-02] MEDS: CALCIUM/VITAMIN D 500 MG TAB PO SCH ×2 (09:29→20:40)
[2021-08-02] MEDS: ENOXAPARIN 40MG/0.4ML SYRINGE (J1650 PER 10MG) SC SCH (09:29)
[2021-08-02] MEDS: LOSARTAN 50MG TABLET PO SCH (09:30)
[2021-08-02 10:20] VITALS: BP_SYST 122
[2021-08-02] MEDS: amLODIPine 5 MG TAB PO SCH (13:15)
[2021-08-02 14:00] VITALS: BP 149/72
[2021-08-02 19:35] LABS: MAGNESIUM LEVEL 1.2 MG/DL (1.7-2.2)
[2021-08-02] MEDS: MEROPENEM INJ 1 GM in IV 1 EA IV SCH (20:40)
[2021-08-02] MEDS: AMITRIPTYLINE 10MG TABLET PO SCH (20:40)
[2021-08-02] MEDS: METOPROLOL SUCC (TopROL XL) 50MG **XL** TAB PO SCH (20:40)
[2021-08-02] MEDS: NYSTATIN 100,000 UNITS/GM TOPICAL PWD 15 GM TOP SCH (21:27)
[2021-08-02 21:55] VITALS: BP 141/76
[2021-08-03 05:56] VITALS: BP 124/73
[2021-08-03 06:56] LABS: HEMATOCRIT 31.3 % (36.0-47.0); HEMOGLOBIN 9.9 g/dl (12.0-15.5); MEAN CORPUSCULAR HEMOGLOBIN 30.8 pg (27.0-33.0); MEAN CORPUSCULAR HGB CONC 31.6 g/dl (32.0-36.5); MEAN CORPUSCULAR VOLUME 97.5 fl (80.0-96.0); PLATELET COUNT, AUTOMATED 347 10^3/uL (150-450); RED BLOOD COUNT 3.21 10^6/uL (4.00-5.40); WHITE BLOOD COUNT 7.8 10^3/uL (4.0-10.0)
[2021-08-03 07:22] LABS: BLOOD UREA NITROGEN 13 MG/DL (7-18); CALCIUM LEVEL 8.9 MG/DL (8.8-10.2); CARBON DIOXIDE LEVEL 32 MEQ/L (21-32); CHLORIDE LEVEL 103 MEQ/L (98-107); GLOMERULAR FILTRATION RATE > 60.0 (>32); GLUCOSE, FASTING 144 MG/DL (70-100); POTASSIUM SERUM 3.1 MEQ/L (3.5-5.1); SODIUM LEVEL 141 MEQ/L (136-145)
[2021-08-03] MEDS: ENOXAPARIN 40MG/0.4ML SYRINGE (J1650 PER 10MG) SC SCH (09:03)
[2021-08-03] MEDS: OCUVITE 1 TAB PO SCH (09:04)
[2021-08-03] MEDS: DOCUSATE SODIUM 100MG CAPSULE PO SCH ×2 (09:04→20:59)
[2021-08-03] MEDS: CALCIUM/VITAMIN D 500 MG TAB PO SCH ×2 (09:04→20:58)
[2021-08-03] MEDS: LORATADINE 10 MG TAB PO SCH (09:04)
[2021-08-03] MEDS: OMEPRAZOLE 20MG CAP PO SCH (09:04)
[2021-08-03] MEDS: levETIRAcetam 250MG TABLET (KEPPRA) PO SCH ×2 (09:04→20:58)
[2021-08-03] MEDS: MEROPENEM INJ 1 GM in IV 1 EA IV SCH ×2 (09:04→20:58)
[2021-08-03] MEDS: ASPIRIN 81 MG CHEW TABLET PO SCH (09:04)
[2021-08-03] MEDS: hydroCHLOROthiazide 12.5 MG CAPSULE PO SCH (09:05)
[2021-08-03] MEDS: LOSARTAN 50MG TABLET PO SCH (09:07)
[2021-08-03] MEDS: NYSTATIN 100,000 UNITS/GM TOPICAL PWD 15 GM TOP SCH ×2 (09:07→20:59)
[2021-08-03] MEDS ORDERED: POTASSIUM CHLORIDE 10MEQ SR TABLET PO ONE (10:50)
[2021-08-03] MEDS: amLODIPine 5 MG TAB PO SCH (12:36)
[2021-08-03 14:00] VITALS: BP 159/83
[2021-08-03 19:49] VITALS: BP 155/80
[2021-08-03] MEDS: AMITRIPTYLINE 10MG TABLET PO SCH (20:58)
[2021-08-03] MEDS: METOPROLOL SUCC (TopROL XL) 50MG **XL** TAB PO SCH (20:59)
[2021-08-03 21:00] VITALS: BP 155/80
[2021-08-04 05:51] LABS: HEMATOCRIT 32.1 % (36.0-47.0); HEMOGLOBIN 10.2 g/dl (12.0-15.5); MEAN CORPUSCULAR HEMOGLOBIN 30.5 pg (27.0-33.0); MEAN CORPUSCULAR HGB CONC 31.8 g/dl (32.0-36.5); MEAN CORPUSCULAR VOLUME 96.1 fl (80.0-96.0); PLATELET COUNT, AUTOMATED 342 10^3/uL (150-450); RED BLOOD COUNT 3.34 10^6/uL (4.00-5.40); WHITE BLOOD COUNT 8.9 10^3/uL (4.0-10.0)
[2021-08-04 06:00] VITALS: BP 150/70
[2021-08-04 06:08] LABS: BLOOD UREA NITROGEN 13 MG/DL (7-18); CALCIUM LEVEL 8.9 MG/DL (8.8-10.2); CARBON DIOXIDE LEVEL 30 MEQ/L (21-32); CHLORIDE LEVEL 104 MEQ/L (98-107); CREATININE FOR GFR 0.77 MG/DL (0.55-1.30); GLOMERULAR FILTRATION RATE > 60.0 (>32); GLUCOSE, FASTING 146 MG/DL (70-100); POTASSIUM SERUM 3.7 MEQ/L (3.5-5.1); SODIUM LEVEL 139 MEQ/L (136-145)
[2021-08-04] MEDS: DOCUSATE SODIUM 100MG CAPSULE PO SCH ×2 (09:00→20:51)
[2021-08-04] MEDS: OMEPRAZOLE 20MG CAP PO SCH (09:12)
[2021-08-04] MEDS: MEROPENEM INJ 1 GM in IV 1 EA IV SCH ×2 (09:12→20:51)
[2021-08-04] MEDS: LOSARTAN 50MG TABLET PO SCH (09:12)
[2021-08-04] MEDS: CALCIUM/VITAMIN D 500 MG TAB PO SCH ×2 (09:13→20:50)
[2021-08-04] MEDS: OCUVITE 1 TAB PO SCH (09:13)
[2021-08-04] MEDS: ASPIRIN 81 MG CHEW TABLET PO SCH (09:13)
[2021-08-04] MEDS: LORATADINE 10 MG TAB PO SCH (09:13)
[2021-08-04] MEDS: levETIRAcetam 250MG TABLET (KEPPRA) PO SCH ×2 (09:13→20:51)
[2021-08-04] MEDS: hydroCHLOROthiazide 12.5 MG CAPSULE PO SCH (09:13)
[2021-08-04] MEDS: NYSTATIN 100,000 UNITS/GM TOPICAL PWD 15 GM TOP SCH ×2 (09:14→20:51)
[2021-08-04] MEDS: ENOXAPARIN 40MG/0.4ML SYRINGE (J1650 PER 10MG) SC SCH (09:19)
[2021-08-04 12:32] VITALS: BP 158/93
[2021-08-04] MEDS: amLODIPine 5 MG TAB PO SCH (12:48)
[2021-08-04] MEDS ORDERED: MAG SULF 1GM/100ML (MAG RUN) 1 GM in IV 1 EA IV ONE (13:00)
[2021-08-04 14:00] VITALS: BP 134/69
[2021-08-04] MEDS: AMITRIPTYLINE 10MG TABLET PO SCH (20:50)
[2021-08-04] MEDS: METOPROLOL SUCC (TopROL XL) 50MG **XL** TAB PO SCH (20:50)
[2021-08-04 21:00] VITALS: BP 134/64
[2021-08-05 06:00] VITALS: BP 135/67
[2021-08-05 07:14] LABS: HEMATOCRIT 34.6 % (36.0-47.0); MEAN CORPUSCULAR HEMOGLOBIN 30.9 pg (27.0-33.0); MEAN CORPUSCULAR HGB CONC 31.8 g/dl (32.0-36.5); MEAN CORPUSCULAR VOLUME 97.2 fl (80.0-96.0); PLATELET COUNT, AUTOMATED 369 10^3/uL (150-450); RED BLOOD COUNT 3.56 10^6/uL (4.00-5.40); WHITE BLOOD COUNT 9.1 10^3/uL (4.0-10.0)
[2021-08-05 07:41] LABS: BLOOD UREA NITROGEN 11 MG/DL (7-18); CALCIUM LEVEL 8.9 MG/DL (8.8-10.2); CARBON DIOXIDE LEVEL 34 MEQ/L (21-32); CHLORIDE LEVEL 100 MEQ/L (98-107); GLOMERULAR FILTRATION RATE > 60.0 (>32); GLUCOSE, FASTING 139 MG/DL (70-100); POTASSIUM SERUM 3.7 MEQ/L (3.5-5.1); SODIUM LEVEL 137 MEQ/L (136-145)
[2021-08-05] MEDS: OCUVITE 1 TAB PO SCH (08:21)
[2021-08-05] MEDS: hydroCHLOROthiazide 12.5 MG CAPSULE PO SCH (08:22)
[2021-08-05] MEDS: LOSARTAN 50MG TABLET PO SCH (08:25)
[2021-08-05] MEDS: OMEPRAZOLE 20MG CAP PO SCH (08:26)
[2021-08-05] MEDS: ASPIRIN 81 MG CHEW TABLET PO SCH (08:26)
[2021-08-05] MEDS: CALCIUM/VITAMIN D 500 MG TAB PO SCH (08:26)
[2021-08-05] MEDS: ENOXAPARIN 40MG/0.4ML SYRINGE (J1650 PER 10MG) SC SCH (08:26)
[2021-08-05] MEDS: DOCUSATE SODIUM 100MG CAPSULE PO SCH (08:26)
[2021-08-05] MEDS: levETIRAcetam 250MG TABLET (KEPPRA) PO SCH (08:26)
[2021-08-05] MEDS: LORATADINE 10 MG TAB PO SCH (08:26)
[2021-08-05] MEDS: MEROPENEM INJ 1 GM in IV 1 EA IV SCH (08:27)
[2021-08-05] MEDS: NYSTATIN 100,000 UNITS/GM TOPICAL PWD 15 GM TOP SCH (08:28)
[2021-08-05] MEDS ORDERED: KEPP1TAB2 PO (10:32)
[2021-08-05 12:32] VITALS: BP 139/67
[2021-08-05] MEDS: amLODIPine 5 MG TAB PO SCH (12:32)
[2021-08-05 14:00] VITALS: BP 146/69
== END 2021-08-05 16:04 | DRG 312 ==
LOC: M ED 11:50 → M ED INP 16:10 → EEVIPCON 16:10 → M MSPAV 21:55
PROVIDERS: ADMIT Internal Medicine; ATTEND Internal Medicine
DX: I95.1 Orthostatic hypotension (principal); N39.0 Urinary tract infection, site not specified; R29.6 Repeated falls; G40.909 Epilepsy, unspecified, not intractable, without status epilepticus; I10 Essential (primary) hypertension; Z79.899 Other long term (current) drug therapy; Z88.0 Allergy status to penicillin; Z88.1 Allergy status to other antibiotic agents; Z88.8 Allergy status to other drugs, medicaments and biological substances; Z91.018 Allergy to other foods; Z66 Do not resuscitate

== ENCOUNTER 2021-08-05 13:35 | Inpatient (IN) | payer MEDICARE, MEDICAID ==
[~2021-08-05] VITALS: Ht 162.6 cm; Wt 76.8 kg
[~2021-08-05 13:35] MED LIST changes: +KEPP1TAB2 PO; +MACR100C42 PO; +MIRA3350 PO
[2021-08-05] MEDS ORDERED: ACETAMINOPHEN TAB 650MG DOSE (2X325MG) PO PRN (15:50)
[2021-08-05 16:08] VITALS: BP 162/74
[2021-08-05] MEDS ORDERED: HOME MED LIST COMPLETE! XX SCH (16:20)
[2021-08-05 20:00] VITALS: BP 162/83
[2021-08-05] MEDS: SENNA 8.6 MG TAB (SENOKOT) PO SCH (20:41)
[2021-08-05] MEDS: CALCIUM/VITAMIN D 500 MG TAB PO SCH (20:42)
[2021-08-05] MEDS: DOCUSATE SODIUM 100MG CAPSULE PO SCH (20:42)
[2021-08-05] MEDS: levETIRAcetam 250MG TABLET (KEPPRA) PO SCH (20:42)
[2021-08-05] MEDS: AMITRIPTYLINE 10MG TABLET PO SCH (20:43)
[2021-08-05] MEDS: METOPROLOL SUCC (TopROL XL) 50MG **XL** TAB PO SCH (20:43)
[2021-08-05] MEDS: REMEDY PHYTOPLEX Z-GUARD PASTE 113GM TUBE (FROM STOREROOM PRODUCT) TOP SCH (20:44)
[2021-08-05] MEDS: MEROPENEM INJ 1 GM in IV 1 EA IV SCH (20:44)
[2021-08-05] MEDS: NYSTATIN 100,000 UNITS/GM TOPICAL PWD 15 GM TOP SCH (20:45)
[2021-08-06 06:00] VITALS: BP 133/71
[2021-08-06 06:41] LABS: BASO % 0.5 % (0.0-1.0); EOS # 0.2 10^3/uL (0.0-0.5); EOS % 3.1 % (0.0-3.0); HEMATOCRIT 34.9 % (36.0-47.0); LYMPH # 1.7 10^3/uL (1.5-5.0); LYMPH % 22.5 % (24.0-44.0); MEAN CORPUSCULAR HEMOGLOBIN 30.4 pg (27.0-33.0); MEAN CORPUSCULAR HGB CONC 31.5 g/dl (32.0-36.5); MEAN CORPUSCULAR VOLUME 96.4 fl (80.0-96.0); MONO # 0.9 10^3/uL (0.0-0.8); MONO % 11.5 % (2.0-8.0); NEUTROPHILS # 4.6 10^3/uL (1.5-8.5); NEUTROPHILS % 60.8 % (36.0-66.0); PLATELET COUNT, AUTOMATED 372 10^3/uL (150-450); RED BLOOD COUNT 3.62 10^6/uL (4.00-5.40); WHITE BLOOD COUNT 7.5 10^3/uL (4.0-10.0)
[2021-08-06 07:12] LABS: ALBUMIN 2.3 GM/DL (3.2-5.2); ALT/SGPT 33 U/L (12-78); BILIRUBIN,TOTAL 0.2 MG/DL (0.2-1.0); BLOOD UREA NITROGEN 11 MG/DL (7-18); CALCIUM LEVEL 8.8 MG/DL (8.8-10.2); CARBON DIOXIDE LEVEL 35 MEQ/L (21-32); CHLORIDE LEVEL 99 MEQ/L (98-107); CREATININE FOR GFR 0.68 MG/DL (0.55-1.30); GLOMERULAR FILTRATION RATE > 60.0 (>32); GLUCOSE, FASTING 135 MG/DL (70-100); POTASSIUM SERUM 4.1 MEQ/L (3.5-5.1); SODIUM LEVEL 137 MEQ/L (136-145); TOTAL PROTEIN 6.3 GM/DL (6.4-8.2)
[2021-08-06] MEDS: DOCUSATE SODIUM 100MG CAPSULE PO SCH ×2 (07:24→21:15)
[2021-08-06] MEDS: ASPIRIN 81MG ENTERIC TABLET PO SCH (07:24)
[2021-08-06] MEDS: OMEPRAZOLE 20MG CAP PO SCH (07:24)
[2021-08-06] MEDS: CALCIUM/VITAMIN D 500 MG TAB PO SCH ×2 (07:24→21:16)
[2021-08-06] MEDS: LOSARTAN 50MG TABLET PO SCH (07:24)
[2021-08-06] MEDS: LORATADINE 10 MG TAB PO SCH (07:25)
[2021-08-06] MEDS: levETIRAcetam 250MG TABLET (KEPPRA) PO SCH ×2 (07:25→21:15)
[2021-08-06] MEDS: OCUVITE 1 TAB PO SCH (07:25)
[2021-08-06] MEDS: amLODIPine 5 MG TAB PO SCH (07:25)
[2021-08-06] MEDS: MIRALAX *UNIT DOSE* 17GM PACKET PO SCH (07:25)
[2021-08-06] MEDS: MEROPENEM INJ 1 GM in IV 1 EA IV SCH ×2 (07:25→21:15)
[2021-08-06] MEDS: REMEDY PHYTOPLEX Z-GUARD PASTE 113GM TUBE (FROM STOREROOM PRODUCT) TOP SCH ×3 (07:26→21:00)
[2021-08-06] MEDS: ENOXAPARIN 40MG/0.4ML SYRINGE (J1650 PER 10MG) SC SCH (07:26)
[2021-08-06] MEDS: NYSTATIN 100,000 UNITS/GM TOPICAL PWD 15 GM TOP SCH ×2 (08:39→21:00)
[2021-08-06] MEDS: DICLOFENAC EPOLAMINE 1.3 % PATCH TOP SCH ×2 (09:00→21:15)
[2021-08-06] MEDS: LACTOBACILLUS ACIDOPHILUS CAP (BACID) PO SCH ×3 (12:30→21:16)
[2021-08-06 14:00] VITALS: BP 117/59
[2021-08-06] MEDS: ACETAMINOPHEN 500 MG TAB PO SCH ×2 (15:20→21:16)
[2021-08-06] MEDS ORDERED: LACTOBACILLUS ACIDOPHILUS CAP (BACID) PO SCH (18:00)
[2021-08-06 20:00] VITALS: BP 144/65
[2021-08-06] MEDS: AMITRIPTYLINE 10MG TABLET PO SCH (21:15)
[2021-08-06] MEDS: METOPROLOL SUCC (TopROL XL) 50MG **XL** TAB PO SCH (21:16)
[2021-08-06] MEDS: SENNA 8.6 MG TAB (SENOKOT) PO SCH (21:16)
[2021-08-07 06:00] VITALS: BP 147/66
[2021-08-07] MEDS: LACTOBACILLUS ACIDOPHILUS CAP (BACID) PO SCH ×4 (08:00→21:25)
[2021-08-07] MEDS: NYSTATIN 100,000 UNITS/GM TOPICAL PWD 15 GM TOP SCH ×2 (09:00→21:00)
[2021-08-07] MEDS: REMEDY PHYTOPLEX Z-GUARD PASTE 113GM TUBE (FROM STOREROOM PRODUCT) TOP SCH ×3 (09:00→21:00)
[2021-08-07] MEDS: MIRALAX *UNIT DOSE* 17GM PACKET PO SCH (09:00)
[2021-08-07] MEDS: CALCIUM/VITAMIN D 500 MG TAB PO SCH ×2 (09:40→21:25)
[2021-08-07] MEDS: levETIRAcetam 250MG TABLET (KEPPRA) PO SCH ×2 (09:40→21:25)
[2021-08-07] MEDS: ACETAMINOPHEN 500 MG TAB PO SCH ×3 (09:42→21:26)
[2021-08-07] MEDS: DOCUSATE SODIUM 100MG CAPSULE PO SCH ×2 (09:43→21:00)
[2021-08-07] MEDS: OCUVITE 1 TAB PO SCH (09:43)
[2021-08-07] MEDS: amLODIPine 5 MG TAB PO SCH (09:43)
[2021-08-07] MEDS: OMEPRAZOLE 20MG CAP PO SCH (09:44)
[2021-08-07] MEDS: LORATADINE 10 MG TAB PO SCH (09:44)
[2021-08-07] MEDS: LOSARTAN 50MG TABLET PO SCH (09:44)
[2021-08-07] MEDS: ASPIRIN 81MG ENTERIC TABLET PO SCH (09:44)
[2021-08-07] MEDS: DICLOFENAC EPOLAMINE 1.3 % PATCH TOP SCH ×2 (09:45→21:27)
[2021-08-07] MEDS: ENOXAPARIN 40MG/0.4ML SYRINGE (J1650 PER 10MG) SC SCH (09:46)
[2021-08-07 16:00] VITALS: BP 128/60
[2021-08-07 20:00] VITALS: BP 154/66
[2021-08-07] MEDS: SENNA 8.6 MG TAB (SENOKOT) PO SCH (21:00)
[2021-08-07] MEDS: AMITRIPTYLINE 10MG TABLET PO SCH (21:25)
[2021-08-07] MEDS: METOPROLOL SUCC (TopROL XL) 50MG **XL** TAB PO SCH (21:26)
[2021-08-08 04:00] VITALS: BP 161/72
[2021-08-08 06:23] VITALS: BP 146/68
[2021-08-08 08:35] LABS: BASO # 0.1 10^3/uL (0.0-0.2); BASO % 0.7 % (0.0-1.0); EOS # 0.3 10^3/uL (0.0-0.5); EOS % 3.5 % (0.0-3.0); HEMATOCRIT 36.1 % (36.0-47.0); HEMOGLOBIN 11.5 g/dl (12.0-15.5); LYMPH # 1.7 10^3/uL (1.5-5.0); LYMPH % 22.6 % (24.0-44.0); MEAN CORPUSCULAR HEMOGLOBIN 31.2 pg (27.0-33.0); MEAN CORPUSCULAR HGB CONC 31.9 g/dl (32.0-36.5); MEAN CORPUSCULAR VOLUME 97.8 fl (80.0-96.0); MONO # 0.7 10^3/uL (0.0-0.8); NEUTROPHILS # 4.7 10^3/uL (1.5-8.5); NEUTROPHILS % 63.4 % (36.0-66.0); PLATELET COUNT, AUTOMATED 401 10^3/uL (150-450); RED BLOOD COUNT 3.69 10^6/uL (4.00-5.40); WHITE BLOOD COUNT 7.5 10^3/uL (4.0-10.0)
[2021-08-08] MEDS: NYSTATIN 100,000 UNITS/GM TOPICAL PWD 15 GM TOP SCH ×2 (09:00→21:00)
[2021-08-08] MEDS: DOCUSATE SODIUM 100MG CAPSULE PO SCH ×2 (09:00→21:00)
[2021-08-08] MEDS: MIRALAX *UNIT DOSE* 17GM PACKET PO SCH (09:00)
[2021-08-08] MEDS: REMEDY PHYTOPLEX Z-GUARD PASTE 113GM TUBE (FROM STOREROOM PRODUCT) TOP SCH ×3 (09:00→21:00)
[2021-08-08 09:01] LABS: BLOOD UREA NITROGEN 13 MG/DL (7-18); CALCIUM LEVEL 8.7 MG/DL (8.8-10.2); CARBON DIOXIDE LEVEL 31 MEQ/L (21-32); CHLORIDE LEVEL 99 MEQ/L (98-107); CREATININE FOR GFR 0.88 MG/DL (0.55-1.30); GLOMERULAR FILTRATION RATE > 60.0 (>32); GLUCOSE, FASTING 234 MG/DL (70-100); POTASSIUM SERUM 4.4 MEQ/L (3.5-5.1); SODIUM LEVEL 139 MEQ/L (136-145)
[2021-08-08] MEDS: ACETAMINOPHEN 500 MG TAB PO SCH ×3 (09:39→21:26)
[2021-08-08] MEDS: ASPIRIN 81MG ENTERIC TABLET PO SCH (09:39)
[2021-08-08] MEDS: OMEPRAZOLE 20MG CAP PO SCH (09:39)
[2021-08-08] MEDS: amLODIPine 5 MG TAB PO SCH (09:39)
[2021-08-08] MEDS: ENOXAPARIN 40MG/0.4ML SYRINGE (J1650 PER 10MG) SC SCH (09:40)
[2021-08-08] MEDS: OCUVITE 1 TAB PO SCH (09:40)
[2021-08-08] MEDS: LORATADINE 10 MG TAB PO SCH (09:40)
[2021-08-08] MEDS: levETIRAcetam 250MG TABLET (KEPPRA) PO SCH ×2 (09:40→21:26)
[2021-08-08] MEDS: LOSARTAN 50MG TABLET PO SCH (09:40)
[2021-08-08] MEDS: CALCIUM/VITAMIN D 500 MG TAB PO SCH ×2 (09:40→21:25)
[2021-08-08] MEDS: DICLOFENAC EPOLAMINE 1.3 % PATCH TOP SCH ×2 (09:41→21:27)
[2021-08-08] MEDS: LACTOBACILLUS ACIDOPHILUS CAP (BACID) PO SCH ×4 (09:45→21:25)
[2021-08-08 14:00] VITALS: BP 132/60
[2021-08-08 20:00] VITALS: BP 159/78
[2021-08-08] MEDS: SENNA 8.6 MG TAB (SENOKOT) PO SCH (21:00)
[2021-08-08] MEDS: AMITRIPTYLINE 10MG TABLET PO SCH (21:25)
[2021-08-08] MEDS: METOPROLOL SUCC *XL* 25MG TAB (TopROL *XL*) PO SCH (21:26)
[2021-08-09 06:00] VITALS: BP 158/72
[2021-08-09] MEDS: ASPIRIN 81MG ENTERIC TABLET PO SCH (08:41)
[2021-08-09] MEDS: CALCIUM/VITAMIN D 500 MG TAB PO SCH ×2 (08:41→20:51)
[2021-08-09] MEDS: LACTOBACILLUS ACIDOPHILUS CAP (BACID) PO SCH ×4 (08:41→20:52)
[2021-08-09] MEDS: DICLOFENAC EPOLAMINE 1.3 % PATCH TOP SCH ×2 (08:41→20:53)
[2021-08-09] MEDS: LORATADINE 10 MG TAB PO SCH (08:41)
[2021-08-09] MEDS: OMEPRAZOLE 20MG CAP PO SCH (08:41)
[2021-08-09] MEDS: OCUVITE 1 TAB PO SCH (08:41)
[2021-08-09] MEDS: LOSARTAN 50MG TABLET PO SCH (08:41)
[2021-08-09] MEDS: REMEDY PHYTOPLEX Z-GUARD PASTE 113GM TUBE (FROM STOREROOM PRODUCT) TOP SCH ×3 (08:42→20:53)
[2021-08-09] MEDS: MIRALAX *UNIT DOSE* 17GM PACKET PO SCH (08:42)
[2021-08-09] MEDS: ACETAMINOPHEN 500 MG TAB PO SCH ×3 (08:42→20:52)
[2021-08-09] MEDS: DOCUSATE SODIUM 100MG CAPSULE PO SCH ×2 (08:42→20:51)
[2021-08-09] MEDS: levETIRAcetam 250MG TABLET (KEPPRA) PO SCH ×2 (08:42→20:52)
[2021-08-09] MEDS: NYSTATIN 100,000 UNITS/GM TOPICAL PWD 15 GM TOP SCH ×2 (08:43→20:53)
[2021-08-09] MEDS: ENOXAPARIN 40MG/0.4ML SYRINGE (J1650 PER 10MG) SC SCH (08:43)
[2021-08-09 14:00] VITALS: BP 135/60
[2021-08-09 20:00] VITALS: BP 159/72
[2021-08-09] MEDS: AMITRIPTYLINE 10MG TABLET PO SCH (20:51)
[2021-08-09] MEDS: SENNA 8.6 MG TAB (SENOKOT) PO SCH (20:52)
[2021-08-09] MEDS: METOPROLOL SUCC *XL* 25MG TAB (TopROL *XL*) PO SCH (20:52)
[2021-08-10 06:00] VITALS: BP 152/63
[2021-08-10] MEDS: MIRALAX *UNIT DOSE* 17GM PACKET PO SCH (08:08)
[2021-08-10] MEDS: CALCIUM/VITAMIN D 500 MG TAB PO SCH ×2 (08:32→21:09)
[2021-08-10] MEDS: levETIRAcetam 250MG TABLET (KEPPRA) PO SCH ×2 (08:32→21:10)
[2021-08-10] MEDS: LORATADINE 10 MG TAB PO SCH (08:33)
[2021-08-10] MEDS: OMEPRAZOLE 20MG CAP PO SCH (08:33)
[2021-08-10] MEDS: OCUVITE 1 TAB PO SCH (08:33)
[2021-08-10] MEDS: ACETAMINOPHEN 500 MG TAB PO SCH ×3 (08:33→21:00)
[2021-08-10] MEDS: ENOXAPARIN 40MG/0.4ML SYRINGE (J1650 PER 10MG) SC SCH (08:33)
[2021-08-10] MEDS: LACTOBACILLUS ACIDOPHILUS CAP (BACID) PO SCH ×4 (08:33→21:10)
[2021-08-10] MEDS: ASPIRIN 81MG ENTERIC TABLET PO SCH (08:33)
[2021-08-10] MEDS: LOSARTAN 50MG TABLET PO SCH (08:33)
[2021-08-10] MEDS: DICLOFENAC EPOLAMINE 1.3 % PATCH TOP SCH ×2 (08:33→21:11)
[2021-08-10] MEDS: DOCUSATE SODIUM 100MG CAPSULE PO SCH ×2 (08:33→21:09)
[2021-08-10] MEDS: REMEDY PHYTOPLEX Z-GUARD PASTE 113GM TUBE (FROM STOREROOM PRODUCT) TOP SCH ×3 (08:34→21:00)
[2021-08-10] MEDS: NYSTATIN 100,000 UNITS/GM TOPICAL PWD 15 GM TOP SCH ×2 (08:34→21:00)
[2021-08-10 14:00] VITALS: BP 139/61
[2021-08-10 19:28] VITALS: BP 153/73
[2021-08-10] MEDS: AMITRIPTYLINE 10MG TABLET PO SCH (21:09)
[2021-08-10] MEDS: SENNA 8.6 MG TAB (SENOKOT) PO SCH (21:09)
[2021-08-10] MEDS: METOPROLOL SUCC *XL* 25MG TAB (TopROL *XL*) PO SCH (21:10)
[2021-08-11 06:00] VITALS: BP 146/67
[2021-08-11] MEDS: ASPIRIN 81MG ENTERIC TABLET PO SCH (07:48)
[2021-08-11] MEDS: CALCIUM/VITAMIN D 500 MG TAB PO SCH ×2 (07:49→20:16)
[2021-08-11] MEDS: OCUVITE 1 TAB PO SCH (07:49)
[2021-08-11] MEDS: LACTOBACILLUS ACIDOPHILUS CAP (BACID) PO SCH ×4 (07:49→20:11)
[2021-08-11] MEDS: OMEPRAZOLE 20MG CAP PO SCH (07:49)
[2021-08-11] MEDS: levETIRAcetam 250MG TABLET (KEPPRA) PO SCH ×2 (07:49→20:15)
[2021-08-11] MEDS: LORATADINE 10 MG TAB PO SCH (07:49)
[2021-08-11] MEDS: MIRALAX *UNIT DOSE* 17GM PACKET PO SCH (07:50)
[2021-08-11] MEDS: DOCUSATE SODIUM 100MG CAPSULE PO SCH ×2 (07:50→20:16)
[2021-08-11] MEDS: DICLOFENAC EPOLAMINE 1.3 % PATCH TOP SCH ×2 (07:50→20:10)
[2021-08-11] MEDS: NYSTATIN 100,000 UNITS/GM TOPICAL PWD 15 GM TOP SCH ×2 (07:51→21:00)
[2021-08-11] MEDS: ENOXAPARIN 40MG/0.4ML SYRINGE (J1650 PER 10MG) SC SCH (07:52)
[2021-08-11] MEDS: REMEDY PHYTOPLEX Z-GUARD PASTE 113GM TUBE (FROM STOREROOM PRODUCT) TOP SCH ×3 (07:53→20:17)
[2021-08-11] MEDS: ACETAMINOPHEN 500 MG TAB PO SCH ×3 (07:55→20:15)
[2021-08-11] MEDS: LOSARTAN 50MG TABLET PO SCH (08:01)
[2021-08-11 10:37] LABS: BASO # 0.1 10^3/uL (0.0-0.2); BASO % 0.7 % (0.0-1.0); EOS # 0.2 10^3/uL (0.0-0.5); EOS % 2.4 % (0.0-3.0); HEMOGLOBIN 11.3 g/dl (12.0-15.5); LYMPH # 1.7 10^3/uL (1.5-5.0); LYMPH % 24.1 % (24.0-44.0); MEAN CORPUSCULAR HEMOGLOBIN 30.9 pg (27.0-33.0); MEAN CORPUSCULAR HGB CONC 32.3 g/dl (32.0-36.5); MEAN CORPUSCULAR VOLUME 95.6 fl (80.0-96.0); MONO # 0.6 10^3/uL (0.0-0.8); MONO % 8.1 % (2.0-8.0); NEUTROPHILS # 4.5 10^3/uL (1.5-8.5); NEUTROPHILS % 64.3 % (36.0-66.0); PLATELET COUNT, AUTOMATED 380 10^3/uL (150-450); RED BLOOD COUNT 3.66 10^6/uL (4.00-5.40)
[2021-08-11 10:56] LABS: CALCIUM LEVEL 9.2 MG/DL (8.8-10.2); CREATININE FOR GFR 1.03 MG/DL (0.55-1.30); GLOMERULAR FILTRATION RATE 53.8 (>32)
[2021-08-11 14:00] VITALS: BP 118/56
[2021-08-11] MEDS: METOPROLOL SUCC *XL* 25MG TAB (TopROL *XL*) PO SCH (20:11)
[2021-08-11] MEDS: SENNA 8.6 MG TAB (SENOKOT) PO SCH (20:11)
[2021-08-11] MEDS: AMITRIPTYLINE 10MG TABLET PO SCH (20:16)
[2021-08-11 20:32] VITALS: BP 150/69
[2021-08-12 05:03] VITALS: BP 142/67
[2021-08-12] MEDS: ACETAMINOPHEN 500 MG TAB PO SCH ×3 (08:33→20:10)
[2021-08-12] MEDS: levETIRAcetam 250MG TABLET (KEPPRA) PO SCH ×2 (08:33→20:10)
[2021-08-12] MEDS: ENOXAPARIN 40MG/0.4ML SYRINGE (J1650 PER 10MG) SC SCH (08:33)
[2021-08-12] MEDS: OMEPRAZOLE 20MG CAP PO SCH (08:34)
[2021-08-12] MEDS: ASPIRIN 81MG ENTERIC TABLET PO SCH (08:34)
[2021-08-12] MEDS: NYSTATIN 100,000 UNITS/GM TOPICAL PWD 15 GM TOP SCH ×2 (08:34→20:11)
[2021-08-12] MEDS: OCUVITE 1 TAB PO SCH (08:34)
[2021-08-12] MEDS: LORATADINE 10 MG TAB PO SCH (08:34)
[2021-08-12] MEDS: DOCUSATE SODIUM 100MG CAPSULE PO SCH ×2 (08:34→20:10)
[2021-08-12] MEDS: CALCIUM/VITAMIN D 500 MG TAB PO SCH ×2 (08:34→20:10)
[2021-08-12] MEDS: DICLOFENAC EPOLAMINE 1.3 % PATCH TOP SCH ×2 (08:34→20:11)
[2021-08-12] MEDS: REMEDY PHYTOPLEX Z-GUARD PASTE 113GM TUBE (FROM STOREROOM PRODUCT) TOP SCH ×3 (08:35→20:11)
[2021-08-12] MEDS: LOSARTAN 50MG TABLET PO SCH (08:38)
[2021-08-12] MEDS: LACTOBACILLUS ACIDOPHILUS CAP (BACID) PO SCH ×4 (08:39→20:10)
[2021-08-12] MEDS: MIRALAX *UNIT DOSE* 17GM PACKET PO SCH (08:56)
[2021-08-12 14:00] VITALS: BP 160/70
[2021-08-12 20:00] VITALS: BP 158/70
[2021-08-12] MEDS: AMITRIPTYLINE 10MG TABLET PO SCH (20:10)
[2021-08-12] MEDS: SENNA 8.6 MG TAB (SENOKOT) PO SCH (20:10)
[2021-08-12] MEDS: METOPROLOL SUCC *XL* 25MG TAB (TopROL *XL*) PO SCH (20:10)
[2021-08-13 06:05] VITALS: BP 151/65
[2021-08-13 07:16] LABS: BASO % 0.7 % (0.0-1.0); EOS # 0.2 10^3/uL (0.0-0.5); EOS % 4.4 % (0.0-3.0); HEMATOCRIT 33.8 % (36.0-47.0); HEMOGLOBIN 10.9 g/dl (12.0-15.5); LYMPH # 1.7 10^3/uL (1.5-5.0); LYMPH % 30.2 % (24.0-44.0); MEAN CORPUSCULAR HEMOGLOBIN 30.8 pg (27.0-33.0); MEAN CORPUSCULAR HGB CONC 32.2 g/dl (32.0-36.5); MEAN CORPUSCULAR VOLUME 95.5 fl (80.0-96.0); MONO # 0.6 10^3/uL (0.0-0.8); MONO % 10.4 % (2.0-8.0); NEUTROPHILS % 53.9 % (36.0-66.0); PLATELET COUNT, AUTOMATED 318 10^3/uL (150-450); RED BLOOD COUNT 3.54 10^6/uL (4.00-5.40); WHITE BLOOD COUNT 5.5 10^3/uL (4.0-10.0)
[2021-08-13 07:43] LABS: BLOOD UREA NITROGEN 17 MG/DL (7-18); CALCIUM LEVEL 9.2 MG/DL (8.8-10.2); CARBON DIOXIDE LEVEL 31 MEQ/L (21-32); CHLORIDE LEVEL 103 MEQ/L (98-107); CREATININE FOR GFR 0.86 MG/DL (0.55-1.30); GLOMERULAR FILTRATION RATE > 60.0 (>32); GLUCOSE, FASTING 142 MG/DL (70-100); POTASSIUM SERUM 4.3 MEQ/L (3.5-5.1); SODIUM LEVEL 139 MEQ/L (136-145)
[2021-08-13] MEDS: MIRALAX *UNIT DOSE* 17GM PACKET PO SCH (08:04)
[2021-08-13] MEDS: DICLOFENAC EPOLAMINE 1.3 % PATCH TOP SCH ×2 (08:16→21:20)
[2021-08-13] MEDS: LOSARTAN 50MG TABLET PO SCH (08:17)
[2021-08-13] MEDS: OMEPRAZOLE 20MG CAP PO SCH (08:17)
[2021-08-13] MEDS: ACETAMINOPHEN 500 MG TAB PO SCH ×3 (08:17→21:19)
[2021-08-13] MEDS: DOCUSATE SODIUM 100MG CAPSULE PO SCH ×2 (08:17→21:18)
[2021-08-13] MEDS: OCUVITE 1 TAB PO SCH (08:17)
[2021-08-13] MEDS: LACTOBACILLUS ACIDOPHILUS CAP (BACID) PO SCH ×4 (08:17→21:18)
[2021-08-13] MEDS: LORATADINE 10 MG TAB PO SCH (08:17)
[2021-08-13] MEDS: ENOXAPARIN 40MG/0.4ML SYRINGE (J1650 PER 10MG) SC SCH (08:17)
[2021-08-13] MEDS: CALCIUM/VITAMIN D 500 MG TAB PO SCH ×2 (08:17→21:18)
[2021-08-13] MEDS: ASPIRIN 81MG ENTERIC TABLET PO SCH (08:17)
[2021-08-13] MEDS: levETIRAcetam 250MG TABLET (KEPPRA) PO SCH ×2 (08:17→21:18)
[2021-08-13] MEDS: REMEDY PHYTOPLEX Z-GUARD PASTE 113GM TUBE (FROM STOREROOM PRODUCT) TOP SCH ×3 (08:18→21:00)
[2021-08-13] MEDS: NYSTATIN 100,000 UNITS/GM TOPICAL PWD 15 GM TOP SCH ×2 (08:18→21:00)
[2021-08-13] MEDS ORDERED: KEPP1TAB2 PO (10:44)
[2021-08-13] MEDS ORDERED: OMEP1CAP73 PO (10:44)
[2021-08-13] MEDS ORDERED: AMIT10TA7 PO (10:44)
[2021-08-13] MEDS ORDERED: LOSA100T45 PO (10:44)
[2021-08-13] MEDS ORDERED: METO1TAB33 PO (10:44)
[2021-08-13] MEDS ORDERED: ASPI81CH48 PO (10:44)
[2021-08-13 14:00] VITALS: BP 140/65
[2021-08-13 20:00] VITALS: BP 133/65
[2021-08-13] MEDS ORDERED: METOPROLOL SUCC (TopROL XL) 50MG **XL** TAB PO SCH (21:00)
[2021-08-13] MEDS: AMITRIPTYLINE 10MG TABLET PO SCH (21:18)
[2021-08-13] MEDS: SENNA 8.6 MG TAB (SENOKOT) PO SCH (21:18)
[2021-08-14 06:00] VITALS: BP 143/86
[2021-08-14 08:33] VITALS: BP 143/86
[2021-08-14] MEDS: DOCUSATE SODIUM 100MG CAPSULE PO SCH (08:33)
[2021-08-14] MEDS: LOSARTAN 50MG TABLET PO SCH (08:33)
[2021-08-14] MEDS: CALCIUM/VITAMIN D 500 MG TAB PO SCH (08:33)
[2021-08-14] MEDS: ENOXAPARIN 40MG/0.4ML SYRINGE (J1650 PER 10MG) SC SCH (08:34)
[2021-08-14] MEDS: levETIRAcetam 250MG TABLET (KEPPRA) PO SCH (08:34)
[2021-08-14] MEDS: MIRALAX *UNIT DOSE* 17GM PACKET PO SCH (08:34)
[2021-08-14] MEDS: LORATADINE 10 MG TAB PO SCH (08:34)
[2021-08-14] MEDS: ACETAMINOPHEN 500 MG TAB PO SCH (08:34)
[2021-08-14] MEDS: ASPIRIN 81MG ENTERIC TABLET PO SCH (08:34)
[2021-08-14] MEDS: LACTOBACILLUS ACIDOPHILUS CAP (BACID) PO SCH (08:34)
[2021-08-14] MEDS: OCUVITE 1 TAB PO SCH (08:34)
[2021-08-14] MEDS: OMEPRAZOLE 20MG CAP PO SCH (08:34)
[2021-08-14] MEDS: REMEDY PHYTOPLEX Z-GUARD PASTE 113GM TUBE (FROM STOREROOM PRODUCT) TOP SCH (08:35)
[2021-08-14] MEDS: NYSTATIN 100,000 UNITS/GM TOPICAL PWD 15 GM TOP SCH (08:35)
[2021-08-14] MEDS: DICLOFENAC EPOLAMINE 1.3 % PATCH TOP SCH (08:35)
== END 2021-08-14 11:00 | disposition home health service (06) | DRG 92 ==
LOC: M PM&R 16:08
PROVIDERS: ADMIT Physical Medicine & Rehabilitation; ATTEND Physical Medicine & Rehabilitation
DX: R29.6 Repeated falls (principal); N39.0 Urinary tract infection, site not specified; G40.909 Epilepsy, unspecified, not intractable, without status epilepticus; R53.1 Weakness; I10 Essential (primary) hypertension; I95.1 Orthostatic hypotension; B96.1 Klebsiella pneumoniae [K. pneumoniae] as the cause of diseases classified elsewhere; B96.20 Unspecified Escherichia coli [E. coli] as the cause of diseases classified elsewhere; Z66 Do not resuscitate; R13.10 Dysphagia, unspecified; M70.41 Prepatellar bursitis, right knee; Z91.018 Allergy to other foods; Z74.09 Other reduced mobility; Z74.1 Need for assistance with personal care; Z79.899 Other long term (current) drug therapy; Z88.0 Allergy status to penicillin; Z88.1 Allergy status to other antibiotic agents; Z88.8 Allergy status to other drugs, medicaments and biological substances

== ENCOUNTER 2021-09-22 00:11 | Inpatient (IN) | payer MEDICARE, MEDICAID ==
[~2021-09-22] VITALS: Ht 162.6 cm; Wt 76.3 kg
[2021-09-22] VITALS (7 sets, daily range): BP systolic 141–173; BP diastolic 63–74; O2SAT 83–92
[~2021-09-22 00:11] MED LIST changes: +METO1TAB33 PO
[2021-09-22 01:02] LABS: BASO # 0.1 10^3/uL (0.0-0.2); BASO % 0.4 % (0.0-1.0); EOS # 0.1 10^3/uL (0.0-0.5); EOS % 0.7 % (0.0-3.0); HEMATOCRIT 36.1 % (36.0-47.0); HEMOGLOBIN 11.9 g/dl (12.0-15.5); LYMPH # 1.2 10^3/uL (1.5-5.0); LYMPH % 9.6 % (24.0-44.0); MEAN CORPUSCULAR HEMOGLOBIN 29.9 pg (27.0-33.0); MEAN CORPUSCULAR VOLUME 90.7 fl (80.0-96.0); MONO # 0.8 10^3/uL (0.0-0.8); MONO % 6.7 % (2.0-8.0); NEUTROPHILS # 10.1 10^3/uL (1.5-8.5); NEUTROPHILS % 82.3 % (36.0-66.0); PLATELET COUNT, AUTOMATED 292 10^3/uL (150-450); RED BLOOD COUNT 3.98 10^6/uL (4.00-5.40); WHITE BLOOD COUNT 12.2 10^3/uL (4.0-10.0)
[2021-09-22 01:37] LABS: INR 1.06; PROTHROMBIN TIME 14.2 SECONDS (12.7-14.5)
[2021-09-22 01:41] LABS: CK-MB VALUE MASS < 1.0 NG/ML (<3.6); CPK CREATINE PHOSPHOKINASE 57 U/L (26-192); MB/CK RELATIVE INDEX 1.75 (< OR =4)
[2021-09-22 02:13] LABS: ABG BASE EXCESS -0.4 (-2.0-2.0); ABG HCO3 25.8 MEQ/L (22.0-26.0); ABG O2 SATURATION 92.5 % (95.0-99.0); ABG PARTIAL PRESSURE CO2 48.5 mmHg (35.0-45.0); ABG PARTIAL PRESSURE O2 66.4 mmHg (75.0-100.0); ABG TOTAL CO2 27.2 MEQ/L (23.0-31.0); ABG pH (ARTERIAL) 7.343 UNITS (7.350-7.450)
[2021-09-22] MEDS ORDERED: ONDANSETRON 4MG/2ML VIAL IV ONE (02:25)
[2021-09-22] MEDS ORDERED: hydrALAZINE 20MG/ML 1ML VIAL (J0360 PER 20MG) IV STA (02:40)
[2021-09-22] MEDS ORDERED: ISOVUE-370 76% 100ML VIAL As Ordered ONE (02:47)
[2021-09-22] MEDS ORDERED: cefTRIAXone SOD 2 GM in D5W MINI-BAG PLUS 50 ML IV ONE (05:05)
[2021-09-22] MEDS ORDERED: LOSA100T45 PO (05:25)
[2021-09-22] MEDS ORDERED: OMEG1CAP88 PO (05:25)
[2021-09-22] MEDS ORDERED: AMIT10TA7 PO (05:25)
[2021-09-22] MEDS ORDERED: KEPP1TAB PO (05:32)
[2021-09-22] MEDS ORDERED: METO1TAB33 PO (05:32)
[2021-09-22] MEDS ORDERED: ASPI81TA26 PO (05:32)
[2021-09-22] MEDS ORDERED: OMEP-173 PO (05:32)
[2021-09-22] MEDS ORDERED: HOME MED LIST COMPLETE! XX SCH (05:35)
[2021-09-22 05:46] LABS: RSV AMPLIFICATION NEGATIVE (NEGATIVE)
[2021-09-22] MEDS ORDERED: LORazepam 2 MG/ML VIAL IV STA (05:47)
[2021-09-22] MEDS: ASPIRIN 300 MG SUPP PR SCH (06:00)
[2021-09-22] MEDS ORDERED: SODIUM CHLORIDE 0.9% INJ 10 ML SYR IV ONE ×2 (06:00)
[2021-09-22] MEDS ORDERED: NS 500 ML IV ONE (07:00)
[2021-09-22] MEDS ORDERED: levETIRAcetam INJection 1,000 MG in D5W 100 ML IV ONE (07:00)
[2021-09-22 07:21] LABS: MAGNESIUM LEVEL 1.6 MG/DL (1.8-2.4); PHOSPHORUS LEVEL 3.5 MG/DL (2.5-4.9)
[2021-09-22 07:26] LABS: ALBUMIN 3.6 GM/DL (3.2-5.2); ALT/SGPT 50 U/L (12-78); BILIRUBIN,TOTAL 0.3 MG/DL (0.2-1.0); BLOOD UREA NITROGEN 12 MG/DL (7-18); CALCIUM LEVEL 9.7 MG/DL (8.8-10.2); CARBON DIOXIDE LEVEL 29 MEQ/L (21-32); CHLORIDE LEVEL 97 MEQ/L (98-107); CREATININE FOR GFR 0.92 MG/DL (0.55-1.30); GLOMERULAR FILTRATION RATE > 60.0 (>32); GLUCOSE, FASTING 209 MG/DL (70-100); POTASSIUM SERUM 3.6 MEQ/L (3.5-5.1); SODIUM LEVEL 135 MEQ/L (136-145); TOTAL PROTEIN 8.4 GM/DL (6.4-8.2)
[2021-09-22] MEDS: NS 1,000 ML IV SCH ×3 (07:37→22:09)
[2021-09-22] MEDS ORDERED: LABETALOL 100MG/20ML VIAL IV PRN (08:10)
[2021-09-22] MEDS ORDERED: hydrALAZINE 20MG/ML 1ML VIAL (J0360 PER 20MG) IV PRN (09:00)
[2021-09-22] MEDS ORDERED: HEPARIN SOD (PORCINE) 5000UNITS/ML 1ML VIAL/SYRINGE SQ SCH (09:00)
[2021-09-22] MEDS: MAG SULF 1GM/100ML (MAG RUN) 1 GM in IV 1 EA IV SCH ×2 (11:20→13:05)
[2021-09-22] MEDS: MEROPENEM INJ 1 GM in IV 1 EA IV SCH ×2 (11:25→17:44)
[2021-09-22] MEDS ORDERED: NS 1,000 ML IV ONE (14:00)
[2021-09-22] MEDS ORDERED: GLUCAGON INJ 1MG VIAL SC PRN (14:20)
[2021-09-22] MEDS ORDERED: DEXTROSE 50% 50 ML SYRINGE IV PRN (14:20)
[2021-09-22] MEDS ORDERED: GLUCOSE 4GM CHEW TABLET PO PRN (14:20)
[2021-09-22] MEDS ORDERED: ACETAMINOPHEN 650 MG SUPP PR ONE (14:20)
[2021-09-22] MEDS ORDERED: FUROSEMIDE 20MG/2ML VIAL (J1940) IV ONE (14:45)
[2021-09-22] MEDS ORDERED: THIAMINE INJection 500 MG in NS 100 ML IV SCH (15:00)
[2021-09-22] MEDS: HEPARIN SOD (PORCINE) 5000UNITS/ML 1ML VIAL/SYRINGE SQ SCH ×2 (16:59→20:43)
[2021-09-22] MEDS: THIAMINE INJection 500 MG in NS 100 ML IV SCH (19:00)
[2021-09-22] MEDS: levETIRAcetam INJection 1,000 MG in D5W 100 ML IV SCH (20:00)
[2021-09-22] MEDS ORDERED: LACOSAMIDE 10MG/ML 20ML VIAL (VIMPAT) IV STA (20:35)
[2021-09-23] VITALS (12 sets, daily range): BP systolic 116–168; BP diastolic 52–90; O2SAT 95–99
[2021-09-23] MEDS: MEROPENEM INJ 1 GM in IV 1 EA IV SCH ×3 (01:15→19:53)
[2021-09-23] MEDS ORDERED: NS 500 ML IV ONE (01:50)
[2021-09-23] MEDS: THIAMINE INJection 500 MG in NS 100 ML IV SCH ×3 (02:37→18:48)
[2021-09-23] MEDS: NS 1,000 ML IV SCH (04:19)
[2021-09-23] MEDS: HEPARIN SOD (PORCINE) 5000UNITS/ML 1ML VIAL/SYRINGE SQ SCH ×3 (05:13→21:16)
[2021-09-23 07:35] LABS: HEMATOCRIT 30.8 % (36.0-47.0); HEMOGLOBIN 10.2 g/dl (12.0-15.5); MEAN CORPUSCULAR HEMOGLOBIN 30.4 pg (27.0-33.0); MEAN CORPUSCULAR HGB CONC 33.1 g/dl (32.0-36.5); MEAN CORPUSCULAR VOLUME 91.7 fl (80.0-96.0); PLATELET COUNT, AUTOMATED 275 10^3/uL (150-450); RED BLOOD COUNT 3.36 10^6/uL (4.00-5.40); WHITE BLOOD COUNT 10.2 10^3/uL (4.0-10.0)
[2021-09-23 07:56] LABS: BLOOD UREA NITROGEN 17 MG/DL (7-18); CALCIUM LEVEL 8.3 MG/DL (8.8-10.2); CARBON DIOXIDE LEVEL 32 MEQ/L (21-32); CHLORIDE LEVEL 102 MEQ/L (98-107); CREATININE FOR GFR 0.83 MG/DL (0.55-1.30); GLOMERULAR FILTRATION RATE > 60.0 (>32); GLUCOSE, FASTING 140 MG/DL (70-100); MAGNESIUM LEVEL 1.9 MG/DL (1.8-2.4); PHOSPHORUS LEVEL 3.4 MG/DL (2.5-4.9); POTASSIUM SERUM 3.2 MEQ/L (3.5-5.1); SODIUM LEVEL 140 MEQ/L (136-145)
[2021-09-23] MEDS: LACOSAMIDE 10MG/ML 20ML VIAL (VIMPAT) IV SCH ×2 (08:38→21:15)
[2021-09-23] MEDS: ASPIRIN 300 MG SUPP PR SCH (08:38)
[2021-09-23] MEDS: levETIRAcetam INJection 1,000 MG in D5W 100 ML IV SCH ×2 (10:00→19:48)
[2021-09-23] MEDS: KCL 10MEQ/100ML SWI (KRUN) 10 MEQ in IV 1 EA IV SCH ×5 (11:00→17:38)
[2021-09-23] MEDS ORDERED: FUROSEMIDE 20MG/2ML VIAL (J1940) IV ONE (12:45)
[2021-09-23] MEDS ORDERED: LIDOCAINE 1% MDV 20ML VIAL As Ordered ONE (14:34)
[2021-09-23] MEDS: FUROSEMIDE 20MG/2ML VIAL (J1940) IV SCH (16:24)
[2021-09-23] MEDS: KCL 10MEQ IN D5/0.45NS 1000ML 1,000 ML IV SCH (16:24)
[2021-09-24] VITALS (27 sets, daily range): BP systolic 140–191; BP diastolic 65–85; O2SAT 87–98
[2021-09-24] MEDS: THIAMINE INJection 500 MG in NS 100 ML IV SCH ×3 (02:48→20:49)
[2021-09-24] MEDS: HEPARIN SOD (PORCINE) 5000UNITS/ML 1ML VIAL/SYRINGE SQ SCH ×3 (05:24→21:02)
[2021-09-24] MEDS: SODIUM CHLORIDE 0.9% INJ 10 ML SYR IV SCH ×2 (05:25→18:11)
[2021-09-24] MEDS: FUROSEMIDE 20MG/2ML VIAL (J1940) IV SCH ×2 (09:00→18:11)
[2021-09-24] MEDS: LACOSAMIDE 10MG/ML 20ML VIAL (VIMPAT) IV SCH ×2 (09:00→21:17)
[2021-09-24] MEDS: MEROPENEM INJ 1 GM in IV 1 EA IV SCH ×2 (09:00→21:02)
[2021-09-24] MEDS: levETIRAcetam INJection 1,000 MG in D5W 100 ML IV SCH ×2 (09:01→20:00)
[2021-09-24] MEDS: ASPIRIN 300 MG SUPP PR SCH (09:01)
[2021-09-24] MEDS ORDERED: ACETAMINOPHEN TAB 650MG DOSE (2X325MG) PO PRN (09:10)
[2021-09-24] MEDS ORDERED: ACETAMINOPHEN TAB 650MG DOSE (2X325MG) PO ONE (09:20)
[2021-09-24] MEDS: KCL 10MEQ IN D5/0.45NS 1000ML 1,000 ML IV SCH (12:30)
[2021-09-24 15:40] LABS: BASO % 0.4 % (0.0-1.0); EOS # 0.1 10^3/uL (0.0-0.5); EOS % 0.8 % (0.0-3.0); HEMATOCRIT 31.9 % (36.0-47.0); HEMOGLOBIN 10.3 g/dl (12.0-15.5); LYMPH # 1.4 10^3/uL (1.5-5.0); LYMPH % 14.4 % (24.0-44.0); MEAN CORPUSCULAR HEMOGLOBIN 29.7 pg (27.0-33.0); MEAN CORPUSCULAR HGB CONC 32.3 g/dl (32.0-36.5); MEAN CORPUSCULAR VOLUME 91.9 fl (80.0-96.0); MONO # 1.5 10^3/uL (0.0-0.8); MONO % 15.3 % (2.0-8.0); NEUTROPHILS # 6.7 10^3/uL (1.5-8.5); NEUTROPHILS % 68.5 % (36.0-66.0); PLATELET COUNT, AUTOMATED 251 10^3/uL (150-450); RED BLOOD COUNT 3.47 10^6/uL (4.00-5.40); WHITE BLOOD COUNT 9.8 10^3/uL (4.0-10.0)
[2021-09-24 16:04] LABS: BLOOD UREA NITROGEN 12 MG/DL (7-18); CALCIUM LEVEL 8.2 MG/DL (8.8-10.2); CARBON DIOXIDE LEVEL 33 MEQ/L (21-32); CHLORIDE LEVEL 100 MEQ/L (98-107); CREATININE FOR GFR 0.63 MG/DL (0.55-1.30); GLOMERULAR FILTRATION RATE > 60.0 (>32); GLUCOSE, FASTING 140 MG/DL (70-100); POTASSIUM SERUM 3.1 MEQ/L (3.5-5.1); SODIUM LEVEL 136 MEQ/L (136-145)
[2021-09-24] MEDS ORDERED: POTASSIUM CHLORIDE 10% LIQ 20 MEQ/15 ML UDC PO ONE (18:10)
[2021-09-24] MEDS ORDERED: hydrALAZINE 20MG/ML 1ML VIAL (J0360 PER 20MG) IV ONE (21:25)
[2021-09-25] VITALS (13 sets, daily range): BP systolic 139–184; BP diastolic 59–88; O2SAT 89–96
[2021-09-25] MEDS: THIAMINE INJection 500 MG in NS 100 ML IV SCH (03:26)
[2021-09-25] MEDS: SODIUM CHLORIDE 0.9% INJ 10 ML SYR IV SCH ×2 (05:22→16:17)
[2021-09-25] MEDS: HEPARIN SOD (PORCINE) 5000UNITS/ML 1ML VIAL/SYRINGE SQ SCH ×3 (05:22→21:56)
[2021-09-25] MEDS: SODIUM CHLORIDE 0.9% INJ 10 ML SYR IV PRN ×4 (05:22→16:17)
[2021-09-25 06:00] LABS: HEMATOCRIT 29.7 % (36.0-47.0); HEMOGLOBIN 9.7 g/dl (12.0-15.5); MEAN CORPUSCULAR HEMOGLOBIN 30.1 pg (27.0-33.0); MEAN CORPUSCULAR HGB CONC 32.7 g/dl (32.0-36.5); MEAN CORPUSCULAR VOLUME 92.2 fl (80.0-96.0); PLATELET COUNT, AUTOMATED 271 10^3/uL (150-450); RED BLOOD COUNT 3.22 10^6/uL (4.00-5.40); WHITE BLOOD COUNT 8.8 10^3/uL (4.0-10.0)
[2021-09-25 06:25] LABS: BLOOD UREA NITROGEN 16 MG/DL (7-18); CALCIUM LEVEL 8.3 MG/DL (8.8-10.2); CARBON DIOXIDE LEVEL 35 MEQ/L (21-32); CHLORIDE LEVEL 103 MEQ/L (98-107); CREATININE FOR GFR 0.58 MG/DL (0.55-1.30); GLOMERULAR FILTRATION RATE > 60.0 (>32); GLUCOSE, FASTING 159 MG/DL (70-100); POTASSIUM SERUM 3.1 MEQ/L (3.5-5.1); SODIUM LEVEL 141 MEQ/L (136-145)
[2021-09-25] MEDS ORDERED: KCL 20MEQ IN 100ML SWI (KRUN) 20 MEQ in IV 1 EA IV ONE ×4 (06:35→08:00)
[2021-09-25] MEDS: FUROSEMIDE 20MG/2ML VIAL (J1940) IV SCH ×2 (08:56→16:17)
[2021-09-25] MEDS: ASPIRIN 81 MG CHEW TABLET PO SCH (08:56)
[2021-09-25] MEDS: LACOSAMIDE 50 MG TAB (VIMPAT) PO SCH ×2 (08:57→21:56)
[2021-09-25] MEDS: levETIRAcetam 250MG TABLET (KEPPRA) PO SCH ×2 (08:57→21:56)
[2021-09-25] MEDS: METOPROLOL SUCC (TopROL XL) 100MG *XL* TAB PO SCH (08:57)
[2021-09-25] MEDS: LOSARTAN 50MG TABLET PO SCH (08:57)
[2021-09-25] MEDS: LORATADINE 10 MG TAB PO SCH (08:57)
[2021-09-25] MEDS ORDERED: OMEPRAZOLE 20MG CAP PO SCH (09:00)
[2021-09-25] MEDS: MEROPENEM INJ 1 GM in IV 1 EA IV SCH ×2 (09:21→21:55)
[2021-09-25] MEDS ORDERED: atenoloL 25 MG TAB PO ONE (15:45)
[2021-09-25] MEDS ORDERED: VIMP50TA3 PO (15:47)
[2021-09-25] MEDS ORDERED: KEPP250T5 PO (15:48)
[2021-09-25] MEDS ORDERED: BACT800T5 PO (15:50)
[2021-09-25] MEDS ORDERED: BACI1CAP PO (15:50)
[2021-09-25 22:35] LABS: HEMATOCRIT 28.7 % (36.0-47.0); HEMOGLOBIN 9.5 g/dl (12.0-15.5)
[2021-09-25] MEDS: SUCRALFATE 1 GM TAB PO SCH (22:37)
[2021-09-25] MEDS ORDERED: PANTOPRAZOLE 40MG VIAL IV SCH (23:00)
[2021-09-26 03:32] VITALS: BP 126/63
[2021-09-26 04:34] LABS: BASO # 0.1 10^3/uL (0.0-0.2); BASO % 0.7 % (0.0-1.0); EOS # 0.6 10^3/uL (0.0-0.5); EOS % 5.2 % (0.0-3.0); HEMATOCRIT 30.3 % (36.0-47.0); LYMPH # 2.7 10^3/uL (1.5-5.0); LYMPH % 25.6 % (24.0-44.0); MEAN CORPUSCULAR HEMOGLOBIN 30.5 pg (27.0-33.0); MEAN CORPUSCULAR VOLUME 92.4 fl (80.0-96.0); MONO # 1.4 10^3/uL (0.0-0.8); MONO % 13.2 % (2.0-8.0); NEUTROPHILS # 5.8 10^3/uL (1.5-8.5); NEUTROPHILS % 54.4 % (36.0-66.0); PLATELET COUNT, AUTOMATED 301 10^3/uL (150-450); RED BLOOD COUNT 3.28 10^6/uL (4.00-5.40); WHITE BLOOD COUNT 10.7 10^3/uL (4.0-10.0)
[2021-09-26 05:02] LABS: BLOOD UREA NITROGEN 25 MG/DL (7-18); CALCIUM LEVEL 8.5 MG/DL (8.8-10.2); CARBON DIOXIDE LEVEL 32 MEQ/L (21-32); CHLORIDE LEVEL 103 MEQ/L (98-107); CREATININE FOR GFR 0.68 MG/DL (0.55-1.30); GLOMERULAR FILTRATION RATE > 60.0 (>32); GLUCOSE, FASTING 161 MG/DL (70-100); POTASSIUM SERUM 3.2 MEQ/L (3.5-5.1); SODIUM LEVEL 137 MEQ/L (136-145)
[2021-09-26] MEDS ORDERED: KCL 20MEQ IN 100ML SWI (KRUN) 20 MEQ in IV 1 EA IV ONE ×2 (05:10)
[2021-09-26] MEDS: HEPARIN SOD (PORCINE) 5000UNITS/ML 1ML VIAL/SYRINGE SQ SCH (05:15)
[2021-09-26] MEDS: SODIUM CHLORIDE 0.9% INJ 10 ML SYR IV SCH (05:15)
[2021-09-26] MEDS: SODIUM CHLORIDE 0.9% INJ 10 ML SYR IV PRN (05:16)
[2021-09-26] MEDS ORDERED: MAG SULF 1GM/100ML (MAG RUN) 1 GM in IV 1 EA IV ONE (06:50)
[2021-09-26] MEDS: POTASSIUM CHLORIDE 10% LIQ 20 MEQ/15 ML UDC PO SCH ×2 (07:17→09:15)
[2021-09-26 07:18] LABS: MAGNESIUM LEVEL 1.4 MG/DL (1.8-2.4)
[2021-09-26 07:57] VITALS: BP 148/84
[2021-09-26] MEDS ORDERED: POTASSIUM CHLORIDE 10% LIQ 20 MEQ/15 ML UDC PO SCH (09:00)
[2021-09-26] MEDS: MEROPENEM INJ 1 GM in IV 1 EA IV SCH (09:15)
[2021-09-26] MEDS: levETIRAcetam 250MG TABLET (KEPPRA) PO SCH (09:15)
[2021-09-26 09:16] VITALS: BP 148/84
[2021-09-26] MEDS: METOPROLOL SUCC (TopROL XL) 100MG *XL* TAB PO SCH (09:16)
[2021-09-26] MEDS: LOSARTAN 50MG TABLET PO SCH (09:16)
[2021-09-26] MEDS: ASPIRIN 81 MG CHEW TABLET PO SCH (09:16)
[2021-09-26] MEDS: LACOSAMIDE 50 MG TAB (VIMPAT) PO SCH (09:16)
[2021-09-26] MEDS: SUCRALFATE 1 GM TAB PO SCH (09:16)
[2021-09-26] MEDS: LORATADINE 10 MG TAB PO SCH (09:16)
[2021-09-26] MEDS: FUROSEMIDE 20MG/2ML VIAL (J1940) IV SCH (09:17)
[2021-09-26 10:51] LABS: HEMATOCRIT 31.1 % (36.0-47.0); HEMOGLOBIN 10.2 g/dl (12.0-15.5)
[2021-09-26 11:22] LABS: MAGNESIUM LEVEL 1.8 MG/DL (1.8-2.4); POTASSIUM SERUM 4.4 MEQ/L (3.5-5.1)
[2021-09-26] MEDS ORDERED: BACTRIM 160MG/800MG DS TAB PO SCH (21:00)
== END 2021-09-26 12:12 | DRG 100 ==
LOC: M ED 00:11 → M ED INP 05:57 → ENRESERV 07:00 → M PCU 08:58
PROVIDERS: ADMIT Internal Medicine; ATTEND General Practice
PROC: 02HV33Z Insertion of Infusion Device into Superior Vena Cava, Percutaneous Approach (ICD-10-PCS; principal; 2021-09-23 13:00)
DX: G40.911 Epilepsy, unspecified, intractable, with status epilepticus (principal); G93.41 Metabolic encephalopathy; I16.1 Hypertensive emergency; N39.0 Urinary tract infection, site not specified; E87.2 Acidosis; I48.91 Unspecified atrial fibrillation; K21.9 Gastro-esophageal reflux disease without esophagitis; I10 Essential (primary) hypertension; E83.42 Hypomagnesemia; Z66 Do not resuscitate; D64.9 Anemia, unspecified; I95.1 Orthostatic hypotension; E87.6 Hypokalemia; B96.1 Klebsiella pneumoniae [K. pneumoniae] as the cause of diseases classified elsewhere; R13.10 Dysphagia, unspecified; Z79.82 Long term (current) use of aspirin; Z79.899 Other long term (current) drug therapy; Z88.0 Allergy status to penicillin; Z88.1 Allergy status to other antibiotic agents; Z88.8 Allergy status to other drugs, medicaments and biological substances; Z91.018 Allergy to other foods

== ENCOUNTER → 2021-09-30 | Outpatient (REF) ==
[~2021-09-30] MED LIST changes: +ASPI81TA26 PO; +BACI1CAP PO; +BACT800T5 PO; +KEPP250T5 PO; +OMEG1CAP88 PO; +OMEP-173 PO; +VIMP50TA3 PO
== END ==
LOC: SKLAB7 07:10
PROVIDERS: ATTEND Neuromusculoskeletal Medicine & OMM
DX: M81.0 Age-related osteoporosis without current pathological fracture (principal)

== ENCOUNTER 2021-10-06 11:03 | Inpatient (IN) | payer MEDICARE, MEDICAID ==
[2021-10-06] MEDS ORDERED: NS 500 ML IV ONE ×2 (11:15→12:05)
[2021-10-06] MEDS ORDERED: LIDOCAINE 2% 5ML JELLY UROJET TOP ONE (11:15)
[2021-10-06] MEDS ORDERED: PANTOPRAZOLE 40MG VIAL IV ONE (11:20)
[2021-10-06 11:37] LABS: BASO % 0.2 % (0.0-1.0); EOS % 0.1 % (0.0-3.0); HEMATOCRIT 27.5 % (36.0-47.0); HEMOGLOBIN 8.4 g/dl (12.0-15.5); LYMPH # 2.1 10^3/uL (1.5-5.0); LYMPH % 12.1 % (24.0-44.0); MEAN CORPUSCULAR HEMOGLOBIN 29.4 pg (27.0-33.0); MEAN CORPUSCULAR HGB CONC 30.5 g/dl (32.0-36.5); MEAN CORPUSCULAR VOLUME 96.2 fl (80.0-96.0); MONO # 1.3 10^3/uL (0.0-0.8); MONO % 7.3 % (2.0-8.0); NEUTROPHILS # 13.8 10^3/uL (1.5-8.5); NEUTROPHILS % 79.3 % (36.0-66.0); PLATELET COUNT, AUTOMATED 604 10^3/uL (150-450); RED BLOOD COUNT 2.86 10^6/uL (4.00-5.40); WHITE BLOOD COUNT 17.3 10^3/uL (4.0-10.0)
[2021-10-06 11:48] LABS: ABG BASE EXCESS -15.9 (-2.0-2.0); ABG HCO3 10.7 MEQ/L (22.0-26.0); ABG O2 SATURATION 99.4 % (95.0-99.0); ABG PARTIAL PRESSURE CO2 28.1 mmHg (35.0-45.0); ABG PARTIAL PRESSURE O2 196.2 mmHg (75.0-100.0); ABG STANDARD HCO3 12.1 MEQ/L (22.0-26.0); ABG TOTAL CO2 11.6 MEQ/L (23.0-31.0)
[2021-10-06 11:48] LABS: INR 1.17; PARTIAL THROMBOPLASTIN TIME 31.7 SECONDS (25.9-37.0); PROTHROMBIN TIME 15.3 SECONDS (12.7-14.5)
[2021-10-06 11:53] LABS: ABG pH (ARTERIAL) 7.199 UNITS (7.350-7.450)
[2021-10-06 12:05] LABS: CK-MB VALUE MASS < 1.0 NG/ML (<3.6); CPK CREATINE PHOSPHOKINASE 16 U/L (26-192); MB/CK RELATIVE INDEX 6.25 (< OR =4)
[2021-10-06 12:06] LABS: ALBUMIN 2.8 GM/DL (3.2-5.2); ALT/SGPT 33 U/L (12-78); AMYLASE 54 U/L (25-115); BILIRUBIN,DIRECT < 0.1 MG/DL (0.0-0.2); BILIRUBIN,TOTAL 0.3 MG/DL (0.2-1.0); LIPASE 118 U/L (73-393); TOTAL PROTEIN 6.6 GM/DL (6.4-8.2)
[2021-10-06] MEDS ORDERED: NS 1,780 ML in IV 1 EA IV ONE (12:25)
[2021-10-06] MEDS ORDERED: MEROPENEM INJ 1 GM in IV 1 EA IV ONE (12:30)
[2021-10-06 12:58] LABS: RSV AMPLIFICATION NEGATIVE (NEGATIVE)
[2021-10-06 12:59] LABS: BLOOD UREA NITROGEN 96 MG/DL (7-18); CALCIUM LEVEL 9.9 MG/DL (8.8-10.2); CARBON DIOXIDE LEVEL 13 MEQ/L (21-32); CHLORIDE LEVEL 112 MEQ/L (98-107); GLOMERULAR FILTRATION RATE 18.5 (>32); GLUCOSE, FASTING 180 MG/DL (70-100); POTASSIUM SERUM 5.8 MEQ/L (3.5-5.1); SODIUM LEVEL 141 MEQ/L (136-145)
[2021-10-06 13:09] VITALS: BP 113/53
[2021-10-06 13:24] VITALS: BP 104/57
[2021-10-06] MEDS ORDERED: ONDANSETRON 4MG/2ML VIAL IV PRN (13:50)
[2021-10-06] MEDS ORDERED: BISA10SU27 PR (14:13)
[2021-10-06] MEDS ORDERED: FLEEENE12 PR (14:13)
[2021-10-06] MEDS ORDERED: BACI1CAP PO (14:13)
[2021-10-06] MEDS ORDERED: HYDR0.5C8 TOP (14:13)
[2021-10-06] MEDS ORDERED: KEPP1TAB PO (14:13)
[2021-10-06] MEDS ORDERED: HOME MED LIST COMPLETE! XX SCH (14:20)
[2021-10-06 14:24] VITALS: BP 112/63
[2021-10-06] MEDS: MORPHINE 2 MG/ML 1ML VIAL IV PRN ×2 (14:32→19:23)
[2021-10-06 15:01] VITALS: BP 165/65
[2021-10-06] MEDS: LORazepam 2 MG/ML VIAL IV PRN (17:49)
[2021-10-07] MEDS ORDERED: LORazepam 2 MG/ML VIAL As Ordered ONE (00:05)
[2021-10-07] MEDS: LORazepam 2 MG/ML VIAL IV PRN ×2 (00:11→12:07)
[2021-10-07] MEDS: MORPHINE 2 MG/ML 1ML VIAL IV PRN ×2 (02:30→09:06)
[2021-10-07] MEDS ORDERED: ATIV1TAB10 PO (11:30)
[2021-10-07] MEDS ORDERED: MORP1SOL5 PO (11:30)
[2021-10-07] MEDS ORDERED: HYOS125TA PO (11:30)
[2021-10-07] MEDS ORDERED: ATIV2INJ5 IV (11:32)
[2021-10-07] MEDS ORDERED: ONDA4INJ4 IV (11:32)
[2021-10-07] MEDS ORDERED: MORP2INJ4 IV (11:32)
[2021-10-07] MEDS ORDERED: ONDA4SOL PO (11:39)
== END 2021-10-07 12:15 | DRG 951 ==
LOC: M ED 12:52 → M ED INP 13:49 → ENRESERV 14:46 → M MSPAV 15:30
PROVIDERS: ADMIT Internal Medicine; ATTEND Family Medicine
PROC: 30233N1 Transfusion of Nonautologous Red Blood Cells into Peripheral Vein, Percutaneous Approach (ICD-10-PCS; principal; 2021-10-06)
DX: Z51.5 Encounter for palliative care (principal); G93.41 Metabolic encephalopathy; A41.9 Sepsis, unspecified organism; K65.9 Peritonitis, unspecified; N17.9 Acute kidney failure, unspecified; K92.2 Gastrointestinal hemorrhage, unspecified; E87.2 Acidosis; K56.7 Ileus, unspecified; K44.0 Diaphragmatic hernia with obstruction, without gangrene; G40.909 Epilepsy, unspecified, not intractable, without status epilepticus; I48.91 Unspecified atrial fibrillation; K21.9 Gastro-esophageal reflux disease without esophagitis; I10 Essential (primary) hypertension; K59.00 Constipation, unspecified; D50.0 Iron deficiency anemia secondary to blood loss (chronic); E87.5 Hyperkalemia; Z66 Do not resuscitate; Z79.82 Long term (current) use of aspirin; Z79.899 Other long term (current) drug therapy; Z88.1 Allergy status to other antibiotic agents; Z88.0 Allergy status to penicillin; Z88.8 Allergy status to other drugs, medicaments and biological substances; Z91.018 Allergy to other foods